=== PATIENT | male | born 1965 | race Caucasian/White ===

== ENCOUNTER 2017-08-31 08:31 | Emergency (ER) | payer OTHER ==
[~2017-08-31] VITALS: Ht 175.3 cm; Wt 94.6 kg
[2017-08-31 08:51] VITALS: BP 123/76
--- NOTE | 2017-08-31 09:09 | NUR ---
PT TO BED 11
--- NOTE | 2017-08-31 09:28 | NUR ---
PATIENT PRESENTS TO ED WITH C/O PRODUCTIVE COUGH X 1 MONTH WHITE PHLEGM AND INTERMITENT DIZZY; PER PT BS 540 AFTER TAKING COUGH SYRUP; TOOK METFORMIN BEFORE ADMIT; DENIES N/V/D;HX OF DM AND HTN;RX OF METFORMIN; SKIN IS PINK/WARM/DRY; AAOX4 WITH EVEN AND STEADY GAIT; HR EVEN AND REGULAR; PATIENT STATES PAIN OF 0/10 AT THIS TIME; PATIENT POSITIONED FOR COMFORT; HOB ELEVATED; BEDRAILS UP X2; BED DOWN. ALL MONITORS IN PLACED;ER MD MADE AWARE OF PT STATUS.
--- NOTE | 2017-08-31 10:08 | NUR ---
DR CHÁVEZ AT BEDSIDE.
[2017-08-31] MEDS: IBUPROFEN 600 MG TAB PO ONE (10:49)
--- NOTE | 2017-08-31 11:00 | NUR ---
XRAY AT BEDSIDE.
[2017-08-31 11:20] VITALS: BP 103/63
--- NOTE | 2017-08-31 11:20 | NUR ---
Patient discharged with v/s stable. Written and verbal after care instructions given and explained. Patient alert, oriented and verbalized understanding of instructions. Ambulatory with steady gait. All questions addressed prior to discharge. ID band removed. Patient advised to follow up with PMD. Rx of ZITHROMAX Z-CATRINA,IBUPROFEN AND ROBITUSSIN given. Patient educated on indication of medication including possible reaction and side effects. Opportunity to ask questions provided and answered.
== END 2017-08-31 11:20 | disposition home or self-care (01) ==
LOC: MED 08:31
DX: J20.9 Acute bronchitis, unspecified (principal); R51 Headache; R50.9 Fever, unspecified; E11.9 Type 2 diabetes mellitus without complications; I10 Essential (primary) hypertension; Z88.2 Allergy status to sulfonamides
CPT/HCPCS: 71010; 82948; 99283; Q0092

== ENCOUNTER 2018-10-01 21:55 | Emergency (ER) | payer OTHER ==
[~2018-10-01] VITALS: Ht 175.3 cm; Wt 97.5 kg
[2018-10-01 22:05] VITALS: BP 133/72
--- NOTE | 2018-10-01 22:12 | NUR ---
PT AMBULATED TO OBBY WITH VSS.
--- NOTE | 2018-10-01 22:35 | NUR ---
52/M BIB SELF, C/O BILATERAL EYE REDNESS, ITCHINESS, DISCOMFORT, DRYNESS, AND SWELLING. PATIENT STATES HE WOKE UP WITH EYE SHUT WITH A FILM OF DRIED DRAINAGE. PATIENT DENIES ANY PAIN AT THIS TIME, STATES HE FELT DISCOMFORT IN THE MORNING. PATIENT STATE, " I DONT FEEL GOOD OVERALL." PERRLA, DENIES BLURRY VISION, WEAKNESS, DIZZINESS, OR SOB. PATIENT A0X4, CLEAR SPEECH, STEADY GAIT.
--- NOTE | 2018-10-01 22:35 | NUR ---
TO ER BED 3
[2018-10-01] MEDS ORDERED: TETRACAINE HCL/PF 0.5% OPTH 4 ML BTL OP ONE (23:55)
[2018-10-02 00:14] VITALS: BP 128/77
--- NOTE | 2018-10-02 00:14 | NUR ---
DPatient discharged with v/s stable. Written and verbal after care instructions given and explained. Patient alert, oriented and verbalized understanding of instructions. Ambulatory with steady gait. All questions addressed prior to discharge. ID band removed. Patient advised to follow up with PMD. Rx of NAPROSYN, DIPHENHYDRAMINE, AND TOBRAMYCIN given. Patient educated on indication of medication including possible reaction and side effects. Opportunity to ask questions provided and answered.
== END 2018-10-02 00:14 | disposition home or self-care (01) ==
LOC: MED 21:55
DX: H10.9 Unspecified conjunctivitis (principal); E11.9 Type 2 diabetes mellitus without complications; I10 Essential (primary) hypertension; Z98.890 Other specified postprocedural states; Z88.2 Allergy status to sulfonamides
CPT/HCPCS: 81025; 99283

== ENCOUNTER 2019-08-21 10:38 | Day surgery (SDC) | payer OTHER ==
[~2019-08-21] VITALS: Ht 175.3 cm; Wt 95.3 kg
[2019-08-21] MEDS ORDERED: fentaNYL 0.05 MG/ML VIAL ONE (11:36)
[2019-08-21] MEDS: fentaNYL 0.05 MG/ML VIAL IVP ONE (11:56)
[2019-08-21] MEDS: LIDOCAINE 2% 100 MG/5 ML UJET TP ONE (12:00)
== END 2019-08-21 12:47 | disposition home or self-care (01) ==
LOC: MMU 10:38 → MDS 10:38
PROVIDERS: ATTEND Internal Medicine Gastroenterology
DX: Z12.11 Encounter for screening for malignant neoplasm of colon (principal); K21.9 Gastro-esophageal reflux disease without esophagitis; I10 Essential (primary) hypertension; E11.9 Type 2 diabetes mellitus without complications; F17.210 Nicotine dependence, cigarettes, uncomplicated; Z79.82 Long term (current) use of aspirin; Z79.899 Other long term (current) drug therapy; E66.9 Obesity, unspecified; Z68.31 Body mass index [BMI] 31.0-31.9, adult; Z98.890 Other specified postprocedural states; Z88.2 Allergy status to sulfonamides
CPT/HCPCS: J3010

== ENCOUNTER 2020-01-08 13:26 | Emergency (ER) | payer OTHER ==
[~2020-01-08] VITALS: Ht 175.3 cm; Wt 95.3 kg
[2020-01-08 13:29] VITALS: BP 134/107
[2020-01-08] MEDS ORDERED: KETOROLAC 60 MG/2 ML VIAL IM ONE (13:45)
[2020-01-08 14:56] VITALS: BP 150/87
== END 2020-01-08 14:56 | disposition home or self-care (01) ==
LOC: MED 13:26
DX: M77.12 Lateral epicondylitis, left elbow (principal); E11.9 Type 2 diabetes mellitus without complications; I10 Essential (primary) hypertension; Z88.2 Allergy status to sulfonamides
CPT/HCPCS: 73080; 96372; 99283; J1885; Q0092

== ENCOUNTER 2020-09-04 00:54 | Emergency (ER) | payer OTHER, SELFPAY ==
[~2020-09-04] VITALS: Ht 175.3 cm; Wt 95.3 kg
[2020-09-04 01:00] VITALS: BP 149/80
--- NOTE | 2020-09-04 01:00 | NUR ---
TO TENT # 01 AMBULATORY
--- NOTE | 2020-09-04 01:06 | NUR ---
SEEN AND EXAMINED BY HARMONY WITH ORDERS AND CARRIED OUT.
[2020-09-04 01:30] VITALS: BP 149/80
--- NOTE | 2020-09-04 01:36 | NUR ---
EKG PERFORMED IN TRIAGE TENT. EKG READS SINUS TACHYCARDIA @ 100
[2020-09-04 01:39] LABS: BASOPHILS % (AUTO) 0.3 % (0.0-2.0); EOSINOPHILS % (AUTO) 0.1 % (0.0-4.0); HEMOGLOBIN 15.3 g/dL (12.0-18.0); LYMPHOCYTES # (AUTO) 0.6 K/uL (2.0-11.5); LYMPHOCYTES % (AUTO) 17.1 % (20.5-51.1); MEAN CORPUSCULAR HEMOGLOBIN 29 pg (27-31); MEAN CORPUSCULAR HGB CONC 34 g/dL (33-37); MEAN CORPUSCULAR VOLUME 84.4 fL (80-94); MONOCYTES # (AUTO) 0.1 K/uL (0.8-1.0); MONOCYTES % (AUTO) 4.4 % (1.7-9.3); NEUTROPHILS # (AUTO) 2.6 K/uL (1.8-7.7); NEUTROPHILS % (AUTO) 78.1 % (42.2-75.2); PLATELET COUNT (AUTO) 119 K/uL (140-450); RED BLOOD CELL COUNT(AUTO) 5.33 MIL/uL (4.20-6.10); RED CELL DISTRIBUTION WIDTH 13.2 % (11.6-13.7); WHITE BLOOD COUNT (AUTO) 3.4 K/uL (4.8-10.8)
[2020-09-04 02:14] LABS: LACTATE DEHYDROGENASE 427 U/L (85-227)
[2020-09-04 02:17] LABS: ANION GAP 16.1 (8-16); CARBON DIOXIDE 27.8 mmol/L (21-32); POTASSIUM 3.9 mmol/L (3.5-5.1)
[2020-09-04 02:25] LABS: PROTHROMBIN TIME 9.4 secs (10.8-13.4)
[2020-09-04 02:28] LABS: ALBUMIN 3.3 g/dL (3.4-5.0); TOTAL BILIRUBIN 0.4 mg/dL (0.0-1.0)
--- NOTE | 2020-09-04 03:05 | NUR ---
ALL SWABS DONE AND SENT LAB, AJAY, NOVEL , RSV, INFLUENZA
[2020-09-04 03:22] LABS: APPEARANCE,URINE CLEAR (CLEAR); BILIRUBIN,URINE NEGATIVE (NEGATIVE); BLOOD, URINE NEGATIVE (NEGATIVE); COLOR,URINE YELLOW (YELLOW); LEUKOCYTE ESTERASE ,URINE NEGATIVE (NEGATIVE); NITRITE, URINE NEGATIVE (NEGATIVE); UGLUCOSE 2+ (NEGATIVE)
--- NOTE | 2020-09-04 03:30 | NUR ---
PATIENT ELOPED FROM FACILITY. DISCHARGE INSTRUCTIONS NOT GIVEN TO PATIENT. DR. Sandoval NOTIFIED.
[2020-09-04 14:44] LABS: RSV NEGATIVE (NEGATIVE)
[2020-09-04] MEDS ORDERED: LOSA25TA43 PO (15:09)
[2020-09-04] MEDS ORDERED: ALOG1TAB7 PO (15:09)
[2020-09-04] MEDS ORDERED: METF-336 PO (15:09)
== END 2020-09-04 03:30 | disposition left against medical advice (07) ==
LOC: MED 00:54
DX: U07.1 COVID-19 (principal); J12.89 Other viral pneumonia; R09.02 Hypoxemia; E11.9 Type 2 diabetes mellitus without complications; I10 Essential (primary) hypertension; Z79.84 Long term (current) use of oral hypoglycemic drugs; Z79.899 Other long term (current) drug therapy; Z88.2 Allergy status to sulfonamides
CPT/HCPCS: 36415; 71045; 80053; 81003; 82550; 82728; 83605; 83615; 83880; 84484; 85025; 85379; 85384; 85610; 85730; 86140; 87040; 87086; 87420; 87426; 87804; 93005; 99285; U0003

== ENCOUNTER 2020-09-04 09:00 | Inpatient (IN) | payer OTHER, SELFPAY ==
[~2020-09-04] VITALS: Ht 175.3 cm; Wt 94.3 kg
[2020-09-04 09:10] VITALS: BP 155/73
--- NOTE | 2020-09-04 10:15 | NUR ---
PT MOVED TO [facility] TENT BY EMS. PT PLACED ON N/C 6L VIA N/C
--- NOTE | 2020-09-04 10:29 | NUR ---
PT SEEN BY DR. HOLDEN OUTSIDE IN [facility].
--- NOTE | 2020-09-04 10:37 | NUR ---
PATIENT AMBULATED FROM TENT-[address] HOLDEN.
--- NOTE | 2020-09-04 11:00 | NUR ---
54 YEAR OLD MALE COMPLAINS OF SHORTNESS OF BREATHE X 1 WEEK. PT DENIES CP, N/V/D, OR HEADACHE. PT AOX4, BREATHING EVEN AND LABORED, RR 30, PLACED ON 6L NC SPO2 95%, SKIN WARM AND DRY. BED IN LOWEST POSITION, LOCKED, BED RAIL UPX1. PMH - DM2, HTN ALLERGIES - SULFAS
--- NOTE | 2020-09-04 11:35 | NUR ---
COVID AND INFLUENZA SWABS SENT TO LAB
[2020-09-04] MEDS ORDERED: AZITHROMYCIN 500 MG in DEXTROSE 5% 250 ML IV ONE (11:45)
[2020-09-04] MEDS ORDERED: DEXAMETHASONE 10 MG/ML VIAL IVP ONE (11:45)
[2020-09-04 11:48] LABS: BASOPHILS % (AUTO) 0.3 % (0.0-2.0); HEMOGLOBIN 14.5 g/dL (12.0-18.0); LYMPHOCYTES # (AUTO) 0.5 K/uL (2.0-11.5); LYMPHOCYTES % (AUTO) 15.7 % (20.5-51.1); MEAN CORPUSCULAR HEMOGLOBIN 29 pg (27-31); MEAN CORPUSCULAR HGB CONC 35 g/dL (33-37); MEAN CORPUSCULAR VOLUME 83.5 fL (80-94); MONOCYTES # (AUTO) 0.2 K/uL (0.8-1.0); MONOCYTES % (AUTO) 6.9 % (1.7-9.3); NEUTROPHILS # (AUTO) 2.3 K/uL (1.8-7.7); NEUTROPHILS % (AUTO) 77.1 % (42.2-75.2); PLATELET COUNT (AUTO) 114 K/uL (140-450); RED BLOOD CELL COUNT(AUTO) 5.03 MIL/uL (4.20-6.10); RED CELL DISTRIBUTION WIDTH 13.1 % (11.6-13.7)
[2020-09-04] MEDS ORDERED: cefTRIAXone 1,000 MG VIAL ONE (11:51)
[2020-09-04 11:54] LABS: APPEARANCE,URINE CLEAR (CLEAR); BILIRUBIN,URINE NEGATIVE (NEGATIVE); BLOOD, URINE 1+ (NEGATIVE); COLOR,URINE YELLOW (YELLOW); LEUKOCYTE ESTERASE ,URINE NEGATIVE (NEGATIVE); NITRITE, URINE NEGATIVE (NEGATIVE); UGLUCOSE 2+ (NEGATIVE)
[2020-09-04 12:12] LABS: LACTATE DEHYDROGENASE 430 U/L (85-227)
[2020-09-04 12:16] LABS: ALBUMIN 3.1 g/dL (3.4-5.0); ANION GAP 14.8 (8-16); CARBON DIOXIDE 25.1 mmol/L (21-32); CREATININE 0.8 mg/dL (0.6-1.3); POTASSIUM 3.9 mmol/L (3.5-5.1); TOTAL BILIRUBIN 0.4 mg/dL (0.0-1.0)
[2020-09-04] MEDS ORDERED: AZITHROMYCIN 500 MG INJ VIAL IV ONE (12:17)
[2020-09-04 12:19] LABS: PROTHROMBIN TIME 9.8 secs (10.8-13.4)
[2020-09-04 13:32] LABS: WBC,URINE 0-5 /HPF (0-5)
[2020-09-04] MEDS ORDERED: KCL 20 MEQ/WATER INJ PREMIX 200 ML IV PRN (13:40)
[2020-09-04] MEDS ORDERED: MORPHINE SULFATE 4 MG/ML SYR IVP PRN (13:40)
[2020-09-04] MEDS ORDERED: POTASSIUM CHLORIDE 10 MEQ TABER PO PRN (13:40)
[2020-09-04] MEDS ORDERED: DEXTROSE 50% 50 ML SYR IVP PRN (13:45)
[2020-09-04 14:05] LABS: C-REACTIVE PROTEIN QUANT 9.5 mg/dL (0.0-0.9)
[2020-09-04] MEDS ORDERED: METF-336 PO (15:09)
[2020-09-04] MEDS ORDERED: ALOG1TAB7 PO (15:09)
[2020-09-04] MEDS ORDERED: LOSA25TA43 PO (15:09)
[2020-09-04] MEDS: NACL 0.9% 1,000 ML IV SCH (15:12)
--- NOTE | 2020-09-04 15:24 | NUR ---
PT ALERT AND AWAKE, BREATHING EVEN AND UNLABORED. RR 30, SPO2 93% ON 6L NC. PT STATES HE IS BREATHING MUCH EASIER NOW
[2020-09-04] MEDS: BLOOD GLUCOSE MONITORING 1 DEV DEV FS SCH ×2 (18:30→21:23)
--- NOTE | 2020-09-04 19:15 | NUR ---
REPORT GIVEN TO MERCEDES PARKS, TRANSFER OF CARE AT THIS TIME
--- NOTE | 2020-09-04 19:44 | NUR ---
Report received from CHARLY Caal for continuation of care.
--- NOTE | 2020-09-04 19:50 | NUR ---
pt refusing insulin - per pt he usually takes metformin 1000 mg daily. Will contact montessori preschool teacher Doctor for medication orders at this time.
--- NOTE | 2020-09-04 20:00 | NUR ---
PT SAO2 DECREASED TO 87% ON 6L NC - PT PLACED ON 10L NRB - SAO2 95%.
--- NOTE | 2020-09-04 20:06 | NUR ---
per Dr. Ornelas patient cannot have metformin because at this time it will increase his risk for kidney injury. Pt made aware of Doctor's orders.
[2020-09-04] MEDS: APIXABAN 2.5 MG TAB PO SCH (21:23)
--- NOTE | 2020-09-04 21:24 | NUR ---
PT FBS 265 , PT REFUSES INSULIN COVERAGE.
--- NOTE | 2020-09-04 21:54 | NUR ---
Note [email or web address] in EDM - 09/04/[address] QUINTANILLA MADE AWARE OF SUCTIONING OF 60 CC OF DARK LIQUID FROM OG TUBE. PER DR. SOCORRO LAINEZ THAT HEPARIN DRIP HAS BEEN STOPPED . START PT ON SANTOSTATIN DRIP AND CONTINUE TO MONITOR PT.
--- NOTE | 2020-09-04 23:22 | NUR ---
PER PT AUTHORIZATION SPOKE W/ DAUGHTER LOY , UPDATED HER ON PT STATUS.
--- NOTE | 2020-09-05 00:59 | NUR ---
PT RESTING IN BED W/ EYES CLOSED, RR EVEN AND UNLABORED. VSS. BED LOCKED AND IN LOWEST POSITION, HOB ELEVATED. PT ON 10L NRB. NO ACUTE DISTRESS NOTED.
--- NOTE | 2020-09-05 01:47 | NUR ---
PAGED POLITICAL DIRECTOR DOCTOR REGARDING PT COUGH & BLOODY SPUTUM
--- NOTE | 2020-09-05 01:51 | NUR ---
PER DR. DONALD ADMINISTER GUAIFENSIN 200MG PO PRN Q4HR NEEDED FOR COUGH.
[2020-09-05] MEDS: NACL 0.9% 1,000 ML IV SCH ×2 (02:20→21:23)
[2020-09-05] MEDS: guaiFENesin 20 MG/ML UDC PO PRN ×5 (02:21→20:13)
--- NOTE | 2020-09-05 03:55 | NUR ---
EMPTIED 1300 CC OF YELLOW URINE FROM URINAL.
--- NOTE | 2020-09-05 04:52 | NUR ---
PT'S MASK FALLING OFF WHILE SLEEPING, SAO2 80%. MASK PLACED BACK ON PT AND TIGHTENED, OXYGEN LEVEL INCREASED TO 15L NRB. CURRENT SAO2 90%.
--- NOTE | 2020-09-05 07:01 | NUR ---
PT FBS 277 , PT REFUSES INSULIN COVERAGE AT THIS TIME.
[2020-09-05] MEDS: BLOOD GLUCOSE MONITORING 1 DEV DEV FS SCH ×4 (07:07→20:15)
--- NOTE | 2020-09-05 07:25 | NUR ---
REPORT GIVEN TO CHARLY READ FOR TRANSFER OF CARE.
--- NOTE | 2020-09-05 07:26 | NUR ---
Report received from CHARLY Benson. Transfer of care at this time.
--- NOTE | 2020-09-05 07:45 | NUR ---
Pt resting, HOB elevated. Emptied 600mL urine, provided new urinal at bedside. VSS, will continue to monitor.
[2020-09-05 08:03] LABS: BASOPHILS % (AUTO) 0.2 % (0.0-2.0); HEMOGLOBIN 15.2 g/dL (12.0-18.0); LYMPHOCYTES # (AUTO) 0.6 K/uL (2.0-11.5); MEAN CORPUSCULAR HEMOGLOBIN 29 pg (27-31); MEAN CORPUSCULAR HGB CONC 35 g/dL (33-37); MEAN CORPUSCULAR VOLUME 84.4 fL (80-94); MONOCYTES # (AUTO) 0.3 K/uL (0.8-1.0); MONOCYTES % (AUTO) 7.5 % (1.7-9.3); NEUTROPHILS # (AUTO) 2.6 K/uL (1.8-7.7); NEUTROPHILS % (AUTO) 75.3 % (42.2-75.2); PLATELET COUNT (AUTO) 146 K/uL (140-450); RED BLOOD CELL COUNT(AUTO) 5.21 MIL/uL (4.20-6.10); RED CELL DISTRIBUTION WIDTH 13.2 % (11.6-13.7); WHITE BLOOD COUNT (AUTO) 3.4 K/uL (4.8-10.8)
--- NOTE | 2020-09-05 08:05 | NUR ---
Report given to CHARLY Oleary for pending admission 117.
--- NOTE | 2020-09-05 08:26 | NUR ---
Patient will be admitted to care of Zak Zheng MD. Admited to tele. Will go to room 117. Belongings list completed. Report to CHARLY Nava.
[2020-09-05] MEDS: AZITHROMYCIN 500 MG in DEXTROSE 5% 250 ML IV SCH (09:00)
--- NOTE | 2020-09-05 09:18 | NUR ---
PATIENT HAS BEEN SCREENED AND CATEGORIZED MODERATE NUTRITION RISK. PATIENT WILL BE SEEN WITHIN 3-5 DAYS OF ADMISSION. 09/07/20 09/09/[address]
[2020-09-05] MEDS: INSULIN LISPRO SLIDING SCALE 100 UNITS/ML VIAL SUBQ PRN ×4 (09:42→20:07)
[2020-09-05] MEDS: DEXAMETHASONE 4 MG/ML VIAL IVP SCH (11:36)
[2020-09-05] MEDS: APIXABAN 2.5 MG TAB PO SCH ×2 (11:37→20:10)
--- NOTE | 2020-09-05 12:29 | NUR ---
SOCIAL WORK NOTE: Patient's Orientation Unable To Assess Information Provided By SEBAS BUENO - MOTHER Comments SW WAS UNABLE TO MEET PATIENT AT BEDSIDE DUE TO MEDICAL CONDITION. SW COMPLETED ASSESSMENT WITH PATIENT'S MOTHER.` Hourly Sign Language Interpreter, Realtionship and Phone Number SEBAS BUENO MOTHER [phone] [facility] Power of Scrub Technician No Does Patient Have a POLST No Identifying Problems No Social Work Triggers Is A Social Work Consult Needed No Mandate Report Filed No Explanation Of Identifying Problems PATIENT IS A 54-YEAR-OLD MALE ADMITTED FOR ACUTE HUPOXIC RESPIRATORY FAILURE. PATIENT HAS PMHX OF HYPERTENSION AND DIABETES. Admitted From Home Pre-Admission Level Of Functioning Status Independent/Ambulatory Prior Resources/Services Used In Last 12 Months No Prior Resources Used Prior DME No Prior DME Used Living Situation Lives With Family House Patient Had Caregiver No Home Support No Caregiver Issues Financial Issues No Known Financial Issue Referral To The Financial Counselor Needed No Factors/Needs No D/C Needs Identified Pt/Rep Participated In Discharge Plan Yes Patient/Family Agress With Discharge Plan Yes Discharge Plan Comments TENTATIVE DISCHARGE PLAN IS FOR PATIENT TO RETURN HOME. DC Plan Status Initiated Addendum: 09/22/20 at 1120 by Keshawn GORMAN SW CONTACTED PATIENT'S MOTHER SEBAS BUENO TO FOLLOW UP WITH FAMILY AND OFFER SUPPORT AND RESOURCES. CHASE SPOKE WITH SEBAS WHO STATED THAT SHE IS UNABLE TO THINK OF ANY RESOURCES OR ASSISTANCE THAT SHE CAN THINK OF. CHASE PROVIDED DIRECT LINE TO [employer] AND WILL REMAIN AVAILABLE IF ANY SOCIAL SUPPORT IS NEEDED.
[2020-09-05] MEDS ORDERED: remdesivir COMMUNICATION ORDER 1 EA MISC MC PRN (15:20)
[2020-09-05 17:34] LABS: ALBUMIN 2.8 g/dL (3.4-5.0); ANION GAP 13.6 (8-16); CARBON DIOXIDE 26.7 mmol/L (21-32); CREATININE 0.8 mg/dL (0.6-1.3); MAGNESIUM 2.1 mg/dL (1.8-2.4); POTASSIUM 4.3 mmol/L (3.5-5.1); TOTAL BILIRUBIN 0.4 mg/dL (0.0-1.0)
[2020-09-05] MEDS ORDERED: remdesivir CLINICAL MONITORING 1 EA MISC MC PRN (17:45)
[2020-09-05] MEDS ORDERED: REMDESIVIR (EUA) 200 MG in NACL 0.9% 100 ML IV SCH (18:00)
[2020-09-05] MEDS: ACETAMINOPHEN 325 MG TAB PO PRN (18:50)
--- NOTE | 2020-09-05 19:25 | NUR ---
RECEIVED REPORT FROM DAY CHARLY GARRIDO. PT AOX4 ON 15L NRB. NO S/S RESPIRATORY DISTRESS. NO C/O PAIN AT THIS TIME. IV SITE LAC 20G PATENT AND INTACT, INFUSING IVF ORDERED. SAFETY MEASURES IN PLACE. CALL LIGHT WITHIN REACH. WILL CONTINUE TO MONITOR
[2020-09-05 20:00] VITALS: BP 126/68
[2020-09-05] MEDS: TEMAZEPAM 15 MG CAP PO SCH (20:08)
--- NOTE | 2020-09-05 20:10 | NUR ---
GAVE 6 UNITS INSULIN SUBQ FOR PT BLOOD SUGAR 291. TOLERATED WELL. WILL CONTINUE TO MONITOR
--- NOTE | 2020-09-05 20:15 | NUR ---
ADMINISTERED SCHEDULED MEDS. PT TOLERATED WELL. WILL CONTINUE TO MONITOR
--- NOTE | 2020-09-05 22:40 | NUR ---
PT ASLEEP IN BED. NRB IN PLACE. VISIBLE CHEST RISE AND FALL NOTED. NO S/S OF DISTRESS NOTED. SAFETY MEASURES IN PLACE. WILL CONTINUE TO MONITOR.
[2020-09-06] VITALS: BP 134/67
--- NOTE | 2020-09-06 01:45 | NUR ---
PT ASLEEP IN BED. NRB MASK IN PLACE. VISIBLE CHEST RISE AND FALL NOTED. NO S/S OF DISTRESS NOTED. WILL CONTINUE TO MONITOR.
[2020-09-06] MEDS: NACL 0.9% 1,000 ML IV SCH ×2 (03:10→15:57)
[2020-09-06 04:00] VITALS: BP 127/68
[2020-09-06] MEDS: BLOOD GLUCOSE MONITORING 1 DEV DEV FS SCH ×4 (05:19→20:57)
[2020-09-06] MEDS: HYDROcodone/APAP 5/325 MG 1 TAB TAB PO PRN ×3 (05:24→18:08)
[2020-09-06] MEDS: INSULIN LISPRO SLIDING SCALE 100 UNITS/ML VIAL SUBQ PRN ×4 (05:27→20:58)
--- NOTE | 2020-09-06 05:30 | NUR ---
GAVE 6 UNITS INSULIN SUBQ FOR PT BLOOD SUGAR 252, TOLERATED WELL. WILL CONTINUE TO MONITOR
[2020-09-06] MEDS: ONDANSETRON 4 MG/2 ML VIAL IVP PRN ×3 (05:48→21:04)
--- NOTE | 2020-09-06 07:35 | NUR ---
ENDORSED PT TO DAY RN FOR CONTINUITY OF CARE. PT IS IN STABLE CONDITION.
--- NOTE | 2020-09-06 07:36 | NUR ---
RECEIVED BEDSIDE REPORT FROM OSCILLOGRAPH TECHNICIAN NURSE. PT AOX4 ON 15L NRB. RESPIRATIONS EVEN AND UNLABORED. NO S/S RESPIRATORY DISTRESS. SKIN IS INTACT, WARM, AND DRY. IV SITE LAC 20G PATENT AND INTACT. SAFETY MEASURES IN PLACE. BED IN LOW POSITION AND CALL LIGHT WITHIN REACH. WILL CONTINUE TO MONITOR
[2020-09-06 08:00] VITALS: BP 119/66
[2020-09-06 08:04] LABS: ALBUMIN 2.6 g/dL (3.4-5.0); ANION GAP 13.5 (8-16); CARBON DIOXIDE 26.6 mmol/L (21-32); CREATININE 0.7 mg/dL (0.6-1.3); MAGNESIUM 2.1 mg/dL (1.8-2.4); POTASSIUM 4.1 mmol/L (3.5-5.1); TOTAL BILIRUBIN 0.4 mg/dL (0.0-1.0)
[2020-09-06 08:13] LABS: HEMATOCRIT 43.9 % (36-52); HEMOGLOBIN 14.9 g/dL (12.0-18.0); LYMPHOCYTES # (AUTO) 0.5 K/uL (2.0-11.5); LYMPHOCYTES % (AUTO) 8.5 % (20.5-51.1); MEAN CORPUSCULAR HEMOGLOBIN 29 pg (27-31); MEAN CORPUSCULAR HGB CONC 34 g/dL (33-37); MEAN CORPUSCULAR VOLUME 84.6 fL (80-94); MONOCYTES # (AUTO) 0.3 K/uL (0.8-1.0); MONOCYTES % (AUTO) 6.4 % (1.7-9.3); NEUTROPHILS # (AUTO) 4.6 K/uL (1.8-7.7); NEUTROPHILS % (AUTO) 85.1 % (42.2-75.2); PLATELET COUNT (AUTO) 183 K/uL (140-450); RED BLOOD CELL COUNT(AUTO) 5.19 MIL/uL (4.20-6.10); RED CELL DISTRIBUTION WIDTH 12.9 % (11.6-13.7); WHITE BLOOD COUNT (AUTO) 5.4 K/uL (4.8-10.8)
[2020-09-06] MEDS: DEXAMETHASONE 4 MG/ML VIAL IVP SCH (09:40)
[2020-09-06] MEDS: APIXABAN 2.5 MG TAB PO SCH ×2 (09:41→20:57)
--- NOTE | 2020-09-06 10:15 | NUR ---
PATIENT 02 SAT WAS AROUND THE 80%. EDUCATED ON DEEP BREATHING TO HELP INCREASE O2 SATURATION. PATIENT VERBALIZED UNDERSTANDING. WILL CONTINUE TO MONITOR.
[2020-09-06] MEDS: guaiFENesin 20 MG/ML UDC PO PRN (10:21)
[2020-09-06] MEDS: AZITHROMYCIN 500 MG in DEXTROSE 5% 250 ML IV SCH (10:26)
--- NOTE | 2020-09-06 10:27 | NUR ---
ALL SCHEDULED MEDS GIVEN. PT IS STABLE. NO DISTRESS NOTED. WILL CONTINUE TO MONITOR.
--- NOTE | 2020-09-06 11:15 | NUR ---
PT EVALUATION IS BEING DONE TO PT NOW
[2020-09-06 12:00] VITALS: BP 119/66
[2020-09-06 14:13] LABS: ANION GAP 13.9 (8-16); CARBON DIOXIDE 29.3 mmol/L (21-32); CREATININE 0.9 mg/dL (0.6-1.3); POTASSIUM 4.2 mmol/L (3.5-5.1)
--- NOTE | 2020-09-06 15:20 | NUR ---
PT IS SLEEPING NOW, NO SIGN OF DISTRESS NOTED, VISIBLE CHEST RISE NOTED
[2020-09-06 16:00] VITALS: BP 120/75
[2020-09-06] MEDS: REMDESIVIR (EUA) 100 MG in NACL 0.9% 100 ML IV SCH (17:06)
--- NOTE | 2020-09-06 18:11 | NUR ---
PATIENT COMPLAINED OF HEADACHE 11/16. ADMINISTERED 1 TYLENOL PO PER ORDERED. Addendum: 09/06/20 at 1814 by Von Rowe RN RN 2 TYLENOL PILLS
[2020-09-06] MEDS: ACETAMINOPHEN 325 MG TAB PO PRN (18:13)
--- NOTE | 2020-09-06 19:20 | NUR ---
RECEIVED BEDSIDE REPORT FROM DAY SHIFT NURSE FOR CONTINUITY OF CARE. PT IS AWAKE AND ALERT, A&OX4. ON 15L O2 NRB WITH BREATHING UNLABORED. CHEST RISE AND FALL IS SYMMETRICAL. SR ON TELE MONITORING. PT IS AMBULATORY. SKIN IS WARM, DRY, AND INTACT. IV IS IN THE LEFT AC 20 GAUGE. PLAN OF CARE DISCUSSED. DROPLET PRECAUTIONS IN PLACE. WILL CONTINUE TO MONITOR. PT IS STABLE.
--- NOTE | 2020-09-06 19:43 | NUR ---
ENDORSED TO BEEF SKINNER FOR CONTINUITY OF CARE. PT IS STABLE.
[2020-09-06 20:00] VITALS: BP 141/72
[2020-09-06] MEDS: TEMAZEPAM 15 MG CAP PO SCH (20:57)
--- NOTE | 2020-09-06 21:04 | NUR ---
ZOFRAN WAS GIVEN PRN FOR NAUSEA. WILL CONTINUE TO MONITOR FOR UPSET STOMACH.
--- NOTE | 2020-09-06 21:40 | NUR ---
CALLED RT TO BEDSIDE FOR PT'S O2 SAT IN THE 70'S. RT IS ASSESSING THE PT. PT WAS PRONED AND EXPLAINED IMPORTANCE OF PRONING. PT IS AGITATED AND WANTS TO SLEEP BUT STATES THAT HE CAN'T BECAUSE THE MASK IS TOO LOUD. PT'S O2 SAT IS NOW 95% WHILE PRONED.
--- NOTE | 2020-09-06 21:49 | NUR ---
CALLED TO BEDSIDE PT DESAT TO 70s PT COMPLIED W/ SELF PRONING AND WAS RE-ASSURED HE SEEMED A BIT ANXIOUS PT ALSO STATED HE HAS BEEN ANXIOUS PT CURRENT SPO2 85-87% UPON MY DEPARTURE
--- NOTE | 2020-09-06 22:10 | NUR ---
PT IS NONCOMPLIANT. PT CONTINUES TO TAKE OFF MASK AND TURNS ON TO HIS BACK EVEN AFTER EXPLAINED THE IMPORTANCE OF PRONING. PT WAS GIVEN EDUCATION ABOUT THE IMPORTANCE OF OXYGEN AND KEEPING THE MASK ON. PT VERBALIZES UNDERSTANDING BUT IS AGITATED.
[2020-09-07] VITALS: BP 115/70
--- NOTE | 2020-09-07 | NUR ---
PT ATTEMPTED TO USE THE RESTROOM FOR A BM. PT WAS SOB AND HAD ANXIETY. PT PULLED OUT IV AND PULLED OFF TELE BOX. PT GOT HIS GOWN WET AND HE WAS CHANGED. PT DID NOT HAVE MASK ON AND WAS INSTRUCTED ABOUT IMPORTANCE OF KEEPING MASK ON FOR OXYGEN.
--- NOTE | 2020-09-07 02:16 | NUR ---
PT IS ASLEEP IN SEMI FOWLERS POSITION. NO RESPIRATORY DISTRESS NOTED. BREATHING IS UNLABORED. ON 15L O2 NRB WITH O2 SAT AT 90%. PT IS STABLE.
[2020-09-07 04:00] VITALS: BP 142/83
--- NOTE | 2020-09-07 04:00 | NUR ---
PT IS SLEEPING IN SEMI FOWLERS POSITION. NO RESPIRATORY DISTRESS NOTED. PT IS ON 15L O2 NRB. TOLERATING THE MASK WELL NOW. O2 SAT IS 92%. PT IS STABLE.
[2020-09-07] MEDS: NACL 0.9% 1,000 ML IV SCH ×2 (04:10→13:03)
--- NOTE | 2020-09-07 06:00 | NUR ---
NEW IV LINE WAS PLACED IN THE LEFT AC 20 GAUGE. THE NEW IV WAS PLACED IN ONE ATTEMPT. PT TOLERATED IT WELL. IV IS PATENT AND FLUSHING.
[2020-09-07] MEDS: INSULIN LISPRO SLIDING SCALE 100 UNITS/ML VIAL SUBQ PRN ×4 (06:19→20:46)
[2020-09-07] MEDS: BLOOD GLUCOSE MONITORING 1 DEV DEV FS SCH ×4 (06:19→20:41)
[2020-09-07] MEDS: HYDROcodone/APAP 5/325 MG 1 TAB TAB PO PRN (06:41)
--- NOTE | 2020-09-07 06:41 | NUR ---
PT IS COMPLAINING OF HEADACHE AT A SCALE OF 6/10. PT WAS GIVEN NORCO FOR PAIN. WILL MONITOR PAIN.
--- NOTE | 2020-09-07 07:20 | NUR ---
ENDORSED PT TO DAY SHIFT NURSE FOR CONTINUITY OF CARE. PT IS STABLE AT THIS TIME. NO RESPIRATORY DISTRESS OR SOB. PLAN OF CARE DISCUSSED.
[2020-09-07 07:43] LABS: BASOPHILS % (AUTO) 0.1 % (0.0-2.0); HEMATOCRIT 47.6 % (36-52); HEMOGLOBIN 16.2 g/dL (12.0-18.0); LYMPHOCYTES # (AUTO) 0.5 K/uL (2.0-11.5); LYMPHOCYTES % (AUTO) 7.2 % (20.5-51.1); MEAN CORPUSCULAR HEMOGLOBIN 29 pg (27-31); MEAN CORPUSCULAR HGB CONC 34 g/dL (33-37); MEAN CORPUSCULAR VOLUME 84.7 fL (80-94); MONOCYTES # (AUTO) 0.6 K/uL (0.8-1.0); MONOCYTES % (AUTO) 8.1 % (1.7-9.3); NEUTROPHILS # (AUTO) 5.9 K/uL (1.8-7.7); NEUTROPHILS % (AUTO) 84.6 % (42.2-75.2); PLATELET COUNT (AUTO) 104 K/uL (140-450); RED BLOOD CELL COUNT(AUTO) 5.62 MIL/uL (4.20-6.10); RED CELL DISTRIBUTION WIDTH 13.3 % (11.6-13.7)
--- NOTE | 2020-09-07 07:45 | NUR ---
RECEIVED BEDSIDE REPORT FROM PELLET POST INSPECTOR NURSE. PT AOX4 ON 15L NRB. RESPIRATIONS EVEN AND UNLABORED. O2 SATURATION AT 98%. NO S/S RESPIRATORY DISTRESS. SKIN IS INTACT, WARM, AND DRY. IV SITE LAC 20G PATENT AND INTACT. SAFETY MEASURES IN PLACE. BED IN LOW POSITION AND CALL LIGHT WITHIN REACH. WILL CONTINUE TO MONITOR
[2020-09-07 08:00] VITALS: BP 138/82
[2020-09-07 08:21] LABS: ALBUMIN 2.8 g/dL (3.4-5.0); CREATININE 0.8 mg/dL (0.6-1.3); TOTAL BILIRUBIN 0.6 mg/dL (0.0-1.0)
[2020-09-07] MEDS: APIXABAN 2.5 MG TAB PO SCH ×3 (09:00→20:33)
[2020-09-07] MEDS: DEXAMETHASONE 4 MG/ML VIAL IVP SCH (09:20)
[2020-09-07] MEDS: DOCUSATE SODIUM 100 MG GELCAP PO SCH (09:21)
[2020-09-07] MEDS: AZITHROMYCIN 500 MG in DEXTROSE 5% 250 ML IV SCH (09:36)
--- NOTE | 2020-09-07 09:40 | NUR ---
ALL SCHEDULED MEDS GIVEN. PT IS STABLE. NO DISTRESS NOTED. WILL CONTINUE TO MONITOR.
[2020-09-07 12:00] VITALS: BP 158/83
--- NOTE | 2020-09-07 12:06 | NUR ---
BLOOD GLUCOSE CHECK IS 250. INSULIN COVERAGE NEEDED. ADMINISTERED 4 UNITS OF INSULIN SQ.
[2020-09-07] MEDS: ACETAMINOPHEN 325 MG TAB PO PRN (13:04)
[2020-09-07] MEDS: guaiFENesin 20 MG/ML UDC PO PRN ×2 (13:04→16:59)
--- NOTE | 2020-09-07 13:06 | NUR ---
PT COMPLAINED OF HEADACHE 3/10. ADMINISTERED TYLENOL PO. PT IS STABLE. NO DISTRESS NOTED. WILL CONTINUE TO MONITOR.
--- NOTE | 2020-09-07 13:25 | NUR ---
PT COMPLAINED OF SPILLING DRINKS ON HIMSELF AND ONTO THE FLOOR. CHANGED PATIENT AND KEPT HIM DRY. PATIENT IS COMFORTABLE AND RELAXED IN BED. NO DISTRESS NOTED. WILL CONTINUE TO MONITOR.
--- NOTE | 2020-09-07 13:46 | NUR ---
DC PLANN[age] YRS OLD MALE PATIENT WAS ADMITTED FROM HOME WITH A DX OF ACUTE HYPOXIC RESP FAILURE /COVID . PT HAS A HX OF HTN AND DM. CXR SHOWED LOWER LUNG VOLUME WITH INCREASED AND PATCHY CONSOLIDATION. RAPID AND PCR COVID TEST POSITIVE. STARTED COVID PROTOCOL REMDESIVER , AZITHROMYCIN AND ROCEPHIN. ON 15L/NRB SATING 90. CONSULTED WITH PULMO AND ID. DC PLAN TO GO HOME WHEN STABLE CM TO FOLLOW Addendum: 09/12/20 at 1222 by Heydi Muñoz CM REMAINS ORALLY INTUBATED TO VENT, FIO2 60%, PEEP 8, O2 SAT 98%. SEDATED WITH PROPOFOL. ON FRANCISCA LEE. PER PULMO/INTELLIGENCE MANAGER -CONT VENT SUPPORT. SURGICAL CONSULT FOR DIALYSIS CATH PLACEMENT IN PLACE. Addendum: 09/14/20 at 1255 by Heydi Muñoz CM REMAINS INTUBATED TO VENT FIO2 50%, PEEP 10 AD O2 SAT 92%. SEDATED WITH PROPOFOL AND FENTANYL. ON ZOSYN. SEEN BY DEANNE MOLINA 09/13/2020. PER PULPA - CONT VENT SUPPORT, WILL START ON SEDATION VACATION. Addendum: 09/21/20 at 1553 by Heydi Muñoz CM REMAINS INTUBATED TO VENT FIO2 55%, PEEP 5, O2 SAT 93%. ON FENTANYL DRIP. SEEN BY PULMO - CONT VENT SUPPORT, DAILY SEDATION VACATION TOLERATED. Addendum: 09/26/20 at 1156 by Heydi Muñoz REMAINS ORALLY INTUBATED TO VENT, FIO2 50%, PEEP 5, O2 SAT 94%. SEDATED WITH FENTANYL. ON MEROPENEM, FLUCONAZOLE, VANCOMYCIN, DECADRON. CURRENT LABS INCLUDE WBC 28.8, H/H 8.9/27.7, NA/K 141/5.5, BUN/CREA 146/5.9, MAG 3.1, ALB 1.7, D DIMER >5000. PER PULMO - DAILY SAT, WEAN FIO2 TOLERATED, GOAL ACVC MODE TOLERATED, UNABLE TO WEAN TO EXTUBATE, NOW INDICATED FOR TRACH AND PEG. PER SURGERY - TRACH AND PEG WITH DR. ALVAREZ THIS WEEK IF READY. Addendum: 09/27/20 at 1102 by Heydi Muñoz CM PER DR. TANG, STILL WAITING FOR SURGERY TO SCHEDULE FOR TRACH AND PEG HOWEVER, FIO2 WENT UP TO 80% TODAY.
--- NOTE | 2020-09-07 15:30 | NUR ---
CHECKED ON PATIENT. PATIENT IS LAYING IN BED WATCHING TV. NO DISTRESS NOTED. WILL CONTINUE TO MONITOR.
[2020-09-07 16:00] VITALS: BP 149/76
[2020-09-07] MEDS: REMDESIVIR (EUA) 100 MG in NACL 0.9% 100 ML IV SCH (17:00)
--- NOTE | 2020-09-07 19:41 | NUR ---
ENDORSED TO SALT LIFTER NURSE FOR CONTINUITY OF CARE.
--- NOTE | 2020-09-07 19:42 | NUR ---
RECEIVED ENDORSEMENT FROM AM SHIFT RN. AAOX4, ON 15L NRB, NO SOB, NO DISTRESS, SAFETY MEASURES IN PLACE, ISO PRECAUTION OBSERVED, PLAN OF CARE DISCUSSED, CALL LIGHT WITHIN REACH.
[2020-09-07 20:00] VITALS: BP 149/84
[2020-09-07] MEDS: TEMAZEPAM 15 MG CAP PO SCH (20:34)
--- NOTE | 2020-09-07 20:41 | NUR ---
DUE MEDS GIVEN ORDERED, TOLERATED WELL, CALL LIGHT WITHIN REACH.
[2020-09-07] MEDS: ONDANSETRON 4 MG/2 ML VIAL IVP PRN (20:49)
[2020-09-08] VITALS (12 sets, daily range): BP systolic 76–176; BP diastolic 48–90
--- NOTE | 2020-09-08 | NUR ---
V/S TAKEN AND RECORDED, KEPT WARM, O2 SAT 87%, KEPT WARM, CALL LIGHT WITHIN REACH.
--- NOTE | 2020-09-08 00:15 | NUR ---
PT DESAT TO 60'S. INCREASE FIO2 ON NRB + HIGHFLOW HUMIDIFIER PT MAINTAIN SATURATION OF 88.
[2020-09-08] MEDS: HYDROcodone/APAP 5/325 MG 1 TAB TAB PO PRN (01:40)
[2020-09-08] MEDS: NACL 0.9% 1,000 ML IV SCH ×2 (01:44→17:42)
--- NOTE | 2020-09-08 03:16 | NUR ---
SLEEPING, RESPIRATION EVEN AND UNLABORED, CALL LIGHT WITHIN REACH.
[2020-09-08] MEDS: BLOOD GLUCOSE MONITORING 1 DEV DEV FS SCH ×4 (06:46→21:00)
[2020-09-08] MEDS: INSULIN LISPRO SLIDING SCALE 100 UNITS/ML VIAL SUBQ PRN ×2 (06:48→12:25)
--- NOTE | 2020-09-08 07:48 | NUR ---
PT STABLE, NO DISTRESS, NO SOB, ENDORSED TO AM SHIFT RN FOR CONTINUITY OF CARE.
[2020-09-08 08:30] LABS: ALBUMIN 2.7 g/dL (3.4-5.0); ANION GAP 15.3 (8-16); CARBON DIOXIDE 24.7 mmol/L (21-32); CREATININE 0.7 mg/dL (0.6-1.3); MAGNESIUM 1.9 mg/dL (1.8-2.4)
--- NOTE | 2020-09-08 09:00 | NUR ---
Patient agitated, stating he can't breathe. J4uiv=10% on O2 @ 15Lpm via NRB. O2sat decreases to 85% with min exertion. Encouraged patient to take deep breaths, reassurance provided. Pt able to rest in bed, watching TV, O2sat 90% on O2 @ 15Lpm via NRB. Call light within reach.
[2020-09-08] MEDS: DEXAMETHASONE 4 MG/ML VIAL IVP SCH (09:09)
[2020-09-08] MEDS: DOCUSATE SODIUM 100 MG GELCAP PO SCH (09:09)
[2020-09-08] MEDS: APIXABAN 2.5 MG TAB PO SCH ×2 (09:10→21:00)
[2020-09-08] MEDS: AZITHROMYCIN 500 MG in DEXTROSE 5% 250 ML IV SCH (09:54)
--- NOTE | 2020-09-08 10:30 | NUR ---
Patient talking on the phone. O2sat decreases to 84% while talking, 90% at rest, NRB mask in place with O2 @ 15Lpm. Encouraged patient to take deep breaths and avoid unnecessary exertion. Instructed to lie down on his stomach to promote lung expansion. Patient verbalized understanding and states he will reposition later.
[2020-09-08 12:11] LABS: BASOPHILS % (AUTO) 0.1 % (0.0-2.0); HEMATOCRIT 48.6 % (36-52); HEMOGLOBIN 16.6 g/dL (12.0-18.0); LYMPHOCYTES # (AUTO) 0.6 K/uL (2.0-11.5); MEAN CORPUSCULAR HEMOGLOBIN 29 pg (27-31); MEAN CORPUSCULAR HGB CONC 34 g/dL (33-37); MEAN CORPUSCULAR VOLUME 84.8 fL (80-94); MONOCYTES # (AUTO) 0.6 K/uL (0.8-1.0); MONOCYTES % (AUTO) 5.9 % (1.7-9.3); NEUTROPHILS # (AUTO) 8.9 K/uL (1.8-7.7); PLATELET COUNT (AUTO) 69 K/uL (140-450); RED BLOOD CELL COUNT(AUTO) 5.73 MIL/uL (4.20-6.10); RED CELL DISTRIBUTION WIDTH 13.4 % (11.6-13.7); WHITE BLOOD COUNT (AUTO) 10.2 K/uL (4.8-10.8)
[2020-09-08] MEDS ORDERED: LORazepam 2 MG/ML VIAL IVP PRN (13:50)
[2020-09-08] MEDS ORDERED: LORazepam 2 MG/ML VIAL ONE (13:50)
--- NOTE | 2020-09-08 14:15 | NUR ---
Patient with SOB and increased RR in the 40s. 2 mg Ativan administered per MD Dhaliwal. Pt need to be intubated d/t patient breathing effort. Intubated at 1419 8.0 and 23 at the teeth. Patient quickly became bradycardic, 1mg atropine adminstered at 1420. Pt went into asystole, 1 mg epi administered and cpr initiated- code blue called. pulse check demonstrated PEA- cpr initiated. 1422 1mg epi administered. 1424 ROSC and pt in sinus tach- 130s. propofol initiated and levo is ready in case of low SBP. Will monitor closely.
[2020-09-08] MEDS ORDERED: PROPOFOL 1000 MG/100 ML PREMIX 100 ML IV ONE ×3 (14:16→18:26)
[2020-09-08] MEDS ORDERED: ETOMIDATE 20 MG/10 ML VIAL IVP ONE (14:20)
[2020-09-08] MEDS ORDERED: SUCCINYLCHOLINE CHLORIDE 200 MG/10 ML VIAL IVP ONE (14:20)
--- NOTE | 2020-09-08 14:30 | NUR ---
vent settings at this time are AC/VC 550vT, 18 rate, peep of 12 and 100% fio2. levophed initiated d/t SPB in the 60s, propofol initiated for sedation.
--- NOTE | 2020-09-08 15:30 | NUR ---
Spoke to patient's mother Rosa and notified her that patient is now intubated with ventilator. Informed her that we will be moving patient to ICU. Rosa verbalized understanding and agree with care plan at this time.
--- NOTE | 2020-09-08 16:22 | NUR ---
SPOKE TO DR HAMLIN REGARDING CRITICAL RESULTS POST INTUBATION PT CURRENTLY ON VC 550 +12 f 18 100% ABG - PH 7.071 CO2 52.3 PO2 75.8 HCO3 14.8 BE -15.6 DR HAMLIN REQUESTING TITRATE VT 600 +10, f24 W/ REPEAT ABG 2HOURS
--- NOTE | 2020-09-08 17:30 | NUR ---
RECEIVED PATIENT TRANSFER FROM TELE UNIT ROOM 117 TO ICU BED 8, WITH ASSIST, TRANSFERRED PATIENT TO ICU BED. CONNECTED PATIENT TO DECAL APPLIER, PATIENT IS INTUBATED ETT TO VENT FIO2 100%, RESPIRATION TACHYPEAN AND SHALLOW, SPO2 AT 94% AT THIS TIME. PUPILS 3MM, SLUGGISH, DOES NOT TRACK. CHANGED PATIENT INTO YELLOW GOWN, AND USED PILLOW TO OFFLOADED PRESSURE AND DISTRIBUTE PRESSURE. IV ON LFA 18G, RUNNING LEVOPHED 28 MCG/MIN AND RFA 20G RUNNING PROPOFOL 45 MCG/KG/MIN. OGT IN PLACE, NOT RUNNING AT THIS TIME. BILATERAL SOFT WRIST RESTRAINTS IN PLACE, NO SIGNS OF INJURY, CAPILLARY REFILLED < 3 SECOND. SKIN WARM TO TOUCH, CLEAN AND INTACT. SAFETY MEASURES IN PLACE. HOB ELEVATED 35 DEGREE, BED IN LOW POSITION, AND BED LOCKED.
--- NOTE | 2020-09-08 17:32 | NUR ---
BERGMAN INSERTED, YELLOW URINE SEEN, SECURED.
--- NOTE | 2020-09-08 17:42 | NUR ---
BLOOD GLUCOSE 426, MD PAGED, AWAITING FOR MD TO RETURN CALL.
[2020-09-08] MEDS ORDERED: NOREPINEPHRINE 4 MG/4 ML VIAL IV ONE (18:00)
--- NOTE | 2020-09-08 18:06 | NUR ---
RECEIVED A CALL BACK FROM DR HAMLIN, INFORMED BG CHECKED 426, DR HAMLIN WAS AWARE, ORDERED 25 UNIT LANTUS SUBQ NOW, AND LANTUS 25 UNIT SUBQ DAILY. REPEATED AND CONFIRMED WITH DR HAMLIN, WILL INPUT ORDER ACCORDINGLY.
[2020-09-08] MEDS ORDERED: INSULIN LANTUS 100 UNITS/ML 10 ML VIAL SUBQ SCH (18:10)
--- NOTE | 2020-09-08 18:12 | NUR ---
PHARMACY AFTER HOUR, OVERRIDE, 25 UNIT LANTUS GIVEN VIA SUBQ PER DR HAMLIN ORDER.
--- NOTE | 2020-09-08 18:35 | NUR ---
STARTED A NEW BOTTLE OF PROPOFOL AT 45 MCG, PRIME NEW TUBINGS. PHARMACY AFTER HOUR OVERRIDE.
[2020-09-08] MEDS: REMDESIVIR (EUA) 100 MG in NACL 0.9% 100 ML IV SCH (18:38)
--- NOTE | 2020-09-08 18:43 | NUR ---
ADMINISTERED SCHEDULED REMDESIVIR PER MD ORDER.
--- NOTE | 2020-09-08 19:35 | NUR ---
RECEIVED PATIENT ON BED WITH HOB ELEVATED TO 30 DEGREE; ORALLY INTUBATED AND VENTILATED AT 100% FIO2; SEDATED WITH PROPOFOL DRIP AT 45 MCG/KG/MIN VIA G 18 IV CANNULA ON LEFT ARM. CARDIACSCOPE SHOWS ON SINUS TACHY HR 111/MN. IVF IN PROGRESS NORMAL SALINE AT 80 ML/HR VIA G20 IV CANNULA ON RIGHT AC. ABDOMEN IS SOFT; HYPOACTIVE BOWEL SOUNDS. NGT IN PLACE, CLAMPED AND KEPT NPO FOR NOW.
--- NOTE | 2020-09-08 19:42 | NUR ---
ENDORSED PATIENT TO OUTSIDE DEALER SALES REPRESENTATIVE NURSE ANNALISE FOR CONTINUITY OF CARE. ENDORSED THAT PLASMA IS READY IS TO BE TRANSFUSED, AND PICC CONSENT, FNS CONSULT FOR OGT FEEDING IS PENDING.
[2020-09-08] MEDS: TEMAZEPAM 15 MG CAP PO SCH (21:00)
--- NOTE | 2020-09-08 22:20 | NUR ---
TRANSFUSED 1 UNIT CONVALESCENT PLASMA AFTER CHECKING WITH ANOTHER CHARLY OMALLEY. V/S MONITORED CLOSELY DURING TRANSFUSION.
[2020-09-08] MEDS: PROPOFOL 1000 MG/100 ML PREMIX 100 ML IV PRN (22:24)
[2020-09-09] VITALS (28 sets, daily range): BP systolic 96–163; BP diastolic 44–92
--- NOTE | 2020-09-09 02:00 | NUR ---
NOTED WITH LARGE AMOUNT OF COFFEE GROUND GASTRIC OUTPUT FROM THE NGT; REFERRED TO DR. HAMLIN WITH ORDER TO CONNECT NGT TO LOW INTERMITTENT SUCTION AND REQUEST FOR TYPE AND XMATCH 2 UNITS PRBC; CARRIED OUT.
[2020-09-09] MEDS ORDERED: ACETAMINOPHEN 650 MG SUPP RC PRN (02:05)
[2020-09-09] MEDS: PROPOFOL 1000 MG/100 ML PREMIX 100 ML IV PRN ×4 (02:22→19:23)
--- NOTE | 2020-09-09 04:00 | NUR ---
MORNING BED BATH DONE; PROPOFOL DRIP TITRATED DOWN PER PROTOCOL.
--- NOTE | 2020-09-09 05:09 | NUR ---
Pt remains unchanged in condition. FiO2 decreased to 80% with SpO2 holding above 98%
[2020-09-09 06:15] LABS: BASOPHILS % (AUTO) 0.1 % (0.0-2.0); EOSINOPHILS % (AUTO) 0.1 % (0.0-4.0); HEMATOCRIT 43.9 % (36-52); HEMOGLOBIN 14.9 g/dL (12.0-18.0); LYMPHOCYTES # (AUTO) 0.7 K/uL (2.0-11.5); LYMPHOCYTES % (AUTO) 4.7 % (20.5-51.1); MEAN CORPUSCULAR HEMOGLOBIN 29 pg (27-31); MEAN CORPUSCULAR HGB CONC 34 g/dL (33-37); MEAN CORPUSCULAR VOLUME 84.6 fL (80-94); MONOCYTES # (AUTO) 0.6 K/uL (0.8-1.0); MONOCYTES % (AUTO) 4.1 % (1.7-9.3); NEUTROPHILS # (AUTO) 12.7 K/uL (1.8-7.7); PLATELET COUNT (AUTO) 60 K/uL (140-450); RED BLOOD CELL COUNT(AUTO) 5.18 MIL/uL (4.20-6.10); RED CELL DISTRIBUTION WIDTH 13.7 % (11.6-13.7)
[2020-09-09] MEDS: INSULIN LISPRO SLIDING SCALE 100 UNITS/ML VIAL SUBQ PRN ×4 (07:30→22:43)
[2020-09-09] MEDS: BLOOD GLUCOSE MONITORING 1 DEV DEV FS SCH ×4 (07:30→21:00)
[2020-09-09 07:49] LABS: ALBUMIN 2.5 g/dL (3.4-5.0); ANION GAP 19.2 (8-16); CARBON DIOXIDE 25.3 mmol/L (21-32); CREATININE 2.9 mg/dL (0.6-1.3); MAGNESIUM 2.4 mg/dL (1.8-2.4); POTASSIUM 4.5 mmol/L (3.5-5.1); TOTAL BILIRUBIN 0.6 mg/dL (0.0-1.0)
[2020-09-09] MEDS: NACL 0.9% 1,000 ML IV SCH ×3 (07:50→21:33)
--- NOTE | 2020-09-09 08:00 | NUR ---
RECEIVED BEDSIDE REPORT FROM HEDGE FUND ACCOUNTANT NURSE, RASS -3, PT IS ETT TO VENT AC V/C FIO2 80%, RATE 24, PEEP 10, SATURATING @ 98%. S1S2 NOTED UPON AUSCULTATION, PT HAS RT FA PERIPHERAL IV RUNNING PROPOFOL 30 MCG/KG/MIN AND LT AC RUNNING NS 0.9% @ 80 ML/HR. BOWEL SOUNDS ACTIVE IN ALL 4 QUADRANTS. OG-TUBE TO INTERMITTENT SUCTION, RESIDUAL: 350ML OF COFFEE GROUND EMESIS. BERGMAN CATH IN PLACE DRAINING TO GRAVITY. SKIN WARM DRY, SKIN INTACT. SAFETY MEASURES IN PLACE, BED LOW AND LOCKED, SIDE RAILS UP, CALL LIGHT WITHIN REACH, WILL CONTINUE TO MONITOR
[2020-09-09] MEDS: DOCUSATE SODIUM 100 MG GELCAP PO SCH (09:00)
[2020-09-09] MEDS: APIXABAN 2.5 MG TAB PO SCH ×2 (09:00→21:00)
[2020-09-09] MEDS: AZITHROMYCIN 500 MG in DEXTROSE 5% 250 ML IV SCH (09:30)
[2020-09-09] MEDS: PANTOPRAZOLE 40 MG INJ VIAL IVP SCH ×2 (09:39→21:33)
[2020-09-09] MEDS: DEXAMETHASONE 4 MG/ML VIAL IVP SCH (09:40)
[2020-09-09] MEDS: INSULIN LANTUS 100 UNITS/ML 10 ML VIAL SUBQ SCH (09:43)
--- NOTE | 2020-09-09 11:30 | NUR ---
PTs TEMP IS 100.3, COOLING MEASURES IN PLACE, WILL CONTINUE TO MONITOR CLOSELY.
--- NOTE | 2020-09-09 12:00 | NUR ---
PTs LATEST TEMP 99.8F, COOLING MEASURES IN PLACE, WILL CONT TO MONITOR CLOSELY.
--- NOTE | 2020-09-09 13:20 | NUR ---
FAMILY CALLED, UPDATED ON PTs CONDITION
--- NOTE | 2020-09-09 13:31 | NUR ---
OBTAINED CONSENT FROM LOY BUENO (DAUGHTER) FOR PICC LINE INSERTION.
--- NOTE | 2020-09-09 13:45 | NUR ---
09/09/20 RD INITIAL ASSESSMENT COMPLETED PLEASE REFER TO NUTRITION ASSESSMENT UNDER CARE ACTIVITY FOR ESTIMATED NUTRITIONAL NEEDS. RD RECOMMENDATIONS: 1. RECOMMEND CONTINUE NPO DIET. 2. WHEN MEDICALLY CLEARED FOR TUBE FEEDING, RECOMMEND GLUCERNA @70MLS/HR (PROVIDES 2016KCALS, 100.8GM PROTEIN, SUFFICIENT TO MEET 100% ESTIMATED NEEDS) 3. WHEN MEDICALLY CLEARED FOR TF, START GLUCERNA 1.2@30MLS/HR. INCREASE RATE, TOLERATED, BY 10MLS/HR Q8HRS TO REACH GOAL RATE OF 70MLS/HR 4. F/U 2-3 DAYS; HIGH RISK SEAN MENDOZA MBA, RD
--- NOTE | 2020-09-09 14:00 | NUR ---
PICC LINE NURSE ON UNIT.
--- NOTE | 2020-09-09 16:00 | NUR ---
PTs LATEST TEMP IS 99.3F, COOLING MEASURES IN PLACE, WILL CONT TO MONITOR. ROUTINE CARE GIVEN, VAP ORAL CARE, BERGMAN CARE, CHG BATH. SAFETY MEASURES, CALL LIGHT WITHIN REACH, WILL CONT TO MONITOR.
--- NOTE | 2020-09-09 18:00 | NUR ---
PTs LATEST TEMP WAS 98.9F. WILL CONT TO MONITOR CLOSELY.
[2020-09-09] MEDS: TEMAZEPAM 15 MG CAP PO SCH (21:00)
--- NOTE | 2020-09-09 21:20 | NUR ---
RECEIVED PATIENT ON DOCUMENTED VENT SETTINGS. VENT PLUGGED INTO RED OUTLET. BMV AT BEDSIDE.ETT SECURED WITH TAPE. ALARMS SET. SX MODERATED THICK RED. NEW MOYA AND HME PLACED ON PATIENT. VITAL SIGNS STABLE. WILL CONT TO MONITOR
[2020-09-10] VITALS (31 sets, daily range): BP systolic 86–154; BP diastolic 45–73
[2020-09-10] MEDS: PROPOFOL 1000 MG/100 ML PREMIX 100 ML IV PRN ×3 (01:00→19:49)
[2020-09-10] MEDS ORDERED: PIPERACILLIN/TAZOBACTAM 2.25 GM VIAL IV ONE (01:23)
[2020-09-10] MEDS: PIPERACILLIN/TAZOBACTAM 2.25 GM in DEXTROSE 5% 50 ML IV SCH ×3 (01:43→21:00)
--- NOTE | 2020-09-10 01:53 | NUR ---
ETT TAPED REMOVED AND REPLACED WITH ANKORFAST.
[2020-09-10 06:34] LABS: MAGNESIUM 2.5 mg/dL (1.8-2.4); PHOSPHORUS 6.3 mg/dL (2.5-4.9)
[2020-09-10 06:46] LABS: ANION GAP 21.1 (8-16); CARBON DIOXIDE 24.8 mmol/L (21-32); POTASSIUM 3.9 mmol/L (3.5-5.1)
[2020-09-10 07:29] LABS: CREATININE 5.3 mg/dL (0.6-1.3)
[2020-09-10] MEDS: BLOOD GLUCOSE MONITORING 1 DEV DEV FS SCH ×4 (07:30→21:00)
--- NOTE | 2020-09-10 07:45 | NUR ---
PAGED DR DEL REAL ABOUT CRITICAL LAB: BUN 72 AND CREATININE 5.3, AWAITING CALL BACK
--- NOTE | 2020-09-10 08:00 | NUR ---
RECEIVED BEDSIDE REPORT FROM GRAVITY FLOW IRRIGATOR NURSE, RASS -3, PT IS ETT TO VENT AC V/C FIO2 60%, RATE 24, PEEP 8, SATURATING @ 95%. S1S2 NOTED UPON AUSCULTATION, PT HAS PT HAS STEFAN PICC LINE RUNNING PROPOFOL 30 MCG/KG/MIN, ASYMPTOMATIC AND PATENT. LT AC PERIPHERAL IV RUNNING NS 0.9% @ 100 ML/HR, ASYMPTOMATIC AND PATENT. RT FA PERIPHERAL IV SALINE LOCK, ASYMPTOMATIC AND PATENT. BOWEL SOUNDS ACTIVE IN ALL 4 QUADRANTS. OG-TUBE TO FEED, VITAL AF 1.2 CURRENTLY AT 4OML/HR WITH A [id number]/HR, FWF: 100 Q8HR, RESIDUAL: 0ML. BERGMAN CATH IN PLACE DRAINING TO GRAVITY. SKIN WARM DRY, SKIN INTACT. SAFETY MEASURES IN PLACE, BED LOW AND LOCKED, SIDE RAILS UP, CALL LIGHT WITHIN REACH, WILL CONTINUE TO MONITOR.
--- NOTE | 2020-09-10 08:00 | NUR ---
PTs CURRENT TEMP 98.5F WILL CONT TO MONITOR CLOSELY.
[2020-09-10] MEDS: NACL 0.9% 1,000 ML IV SCH ×2 (08:30→20:55)
[2020-09-10] MEDS: INSULIN LISPRO SLIDING SCALE 100 UNITS/ML VIAL SUBQ PRN ×4 (08:43→23:07)
[2020-09-10] MEDS: APIXABAN 2.5 MG TAB PO SCH ×2 (09:00→21:00)
[2020-09-10] MEDS: DEXAMETHASONE 4 MG/ML VIAL IVP SCH (09:10)
[2020-09-10] MEDS: DOCUSATE SODIUM 100 MG GELCAP PO SCH (09:10)
[2020-09-10] MEDS: INSULIN LANTUS 100 UNITS/ML 10 ML VIAL SUBQ SCH (09:13)
--- NOTE | 2020-09-10 10:00 | NUR ---
NO S/S OF DISTRESS NOTED, SAFETY MEASURES IN PLACE, WILL CONT. TO MONITOR.
--- NOTE | 2020-09-10 11:50 | NUR ---
DR HUYEN MERCADO ON THE UNIT, UPDATED ON PTs CONDITION. AWARE OF LAB RESULTS.
--- NOTE | 2020-09-10 12:00 | NUR ---
PTs CONDITION REMAINS UNCHANGED. SAFETY MEASURES IN PLACE, WILL CONT TO MONITOR.
[2020-09-10] MEDS ORDERED: fentaNYL citrate 1 MG in NACL 0.9% 80 ML IV PRN (12:55)
--- NOTE | 2020-09-10 13:00 | NUR ---
DR CAMPOS ON UNIT, PER DR CAMPOS, ORDER FENTANYL DRIP FOR SEDATION AND LACTULOSE 30 GM ONCE
[2020-09-10] MEDS ORDERED: LACTULOSE 20 GM/30 ML UDC PO SCH (13:30)
[2020-09-10] MEDS: fentaNYL citrate - 50mL vial 2.5 MG in NACL 0.9% 200 ML IV PRN (14:30)
--- NOTE | 2020-09-10 16:00 | NUR ---
ROUTINE CARE GIVEN, BERGMAN CARE, VAP ORAL CARE, CHG BATH, NEW LINEN AND GOWN. PT TOLERATED IT WELL. SAFETY MEASURES IN PLACE, BED LOW AND LOCKED, SIDE RAILS UP, CALL LIGHT WITHIN REACH, WILL CONT TO MONITOR.
--- NOTE | 2020-09-10 18:00 | NUR ---
NO S/S OF DISTRESS NOTED, REPOSITIONED PT, TOLERATED IT WELL. SAFETY MEASURES IN PLACE, WILL CONT TO MONITOR.
--- NOTE | 2020-09-10 19:30 | NUR ---
RECEIVED PATIENT ON BED WITH HOB ELEVATED TO 30 DEGREE,ORALLY INTUBATED AND VENTILATED AT 70% FIO2, SO2 95%. SEDATED WITH PROPOFOL DRIP AT 30 MCG/KG/MIN AND WITH FENTANYL DRIP AT 0.5 MCG/KG/HR TO KEEP RASS -3 INFUSING THRU PICC LINE ON RIGHT UPPER ARM. IVF IN PROGRESS NORMAL SALINE AT 100 ML/HR VIA IV CANNULA ON LEFT WRIST, INTACT. ABDOMEN IS SOFT HYPOACTIVE BOWEL SOUNDS;ON CONTINOUS TUBE FEEDING VITAL AF AT 40 ML/HR VIA OGT; TOLERATED WITH MINIMAL RESIDUAL. WITH BERGMAN CATH IN SITU TO GRAVITY DRAINAGE BAG, DRAINING TO CLEAR YELLOW URINE OUTPUT; PATENT AND INTACT.
--- NOTE | 2020-09-10 20:30 | NUR ---
TURNED AND REPOSITIONED PATIENT; ORAL CARE DONE WITH VAP KIT.
[2020-09-10] MEDS: FAMOTIDINE 20 MG/2 ML VIAL IV SCH (21:00)
[2020-09-10] MEDS: TEMAZEPAM 15 MG CAP PO SCH (21:00)
[2020-09-11] VITALS (29 sets, daily range): BP systolic 114–148; BP diastolic 51–70
[2020-09-11] MEDS: PROPOFOL 1000 MG/100 ML PREMIX 100 ML IV PRN ×4 (01:10→23:59)
--- NOTE | 2020-09-11 03:30 | NUR ---
MORNING BED BATH DONE; REPOSITIONED PATIENT.
[2020-09-11] MEDS: PIPERACILLIN/TAZOBACTAM 2.25 GM in DEXTROSE 5% 50 ML IV SCH ×3 (05:00→20:34)
[2020-09-11 06:21] LABS: BASOPHILS % (AUTO) 0.2 % (0.0-2.0); HEMATOCRIT 35.4 % (36-52); LYMPHOCYTES # (AUTO) 0.2 K/uL (2.0-11.5); LYMPHOCYTES % (AUTO) 2.1 % (20.5-51.1); MEAN CORPUSCULAR HEMOGLOBIN 29 pg (27-31); MEAN CORPUSCULAR HGB CONC 34 g/dL (33-37); MEAN CORPUSCULAR VOLUME 85.7 fL (80-94); MONOCYTES # (AUTO) 0.8 K/uL (0.8-1.0); MONOCYTES % (AUTO) 7.3 % (1.7-9.3); NEUTROPHILS # (AUTO) 9.8 K/uL (1.8-7.7); NEUTROPHILS % (AUTO) 90.4 % (42.2-75.2); PLATELET COUNT (AUTO) 101 K/uL (140-450); RED BLOOD CELL COUNT(AUTO) 4.13 MIL/uL (4.20-6.10); RED CELL DISTRIBUTION WIDTH 13.5 % (11.6-13.7); WHITE BLOOD COUNT (AUTO) 10.8 K/uL (4.8-10.8)
[2020-09-11 06:39] LABS: ANION GAP 17.8 (8-16); CARBON DIOXIDE 25.8 mmol/L (21-32); POTASSIUM 4.6 mmol/L (3.5-5.1)
[2020-09-11 07:24] LABS: CREATININE 6.5 mg/dL (0.6-1.3)
--- NOTE | 2020-09-11 07:30 | NUR ---
RECEIVED REPORT FROM BIOMEDICAL SERVICE ENGINEER NURSE FOR CONTINUITY OF CARE. PT IN BED, SUPINE POSITION, HOB ELEVATED. RASS-3, FLACC 0, NO SOB, NO APPARENT DISTRESS. ETT TO VENT: AC/PC FIO2 80% R 22 PEEP 8. ABD SOFT, NON-DISTENDED, NON-TENDER. WITH STEFAN PICC, RUNNING PROPOFOL 25MCG, FENTANYL 0.5MCG, NS 100CC/HR. BERGMAN INTACT AND PATENT. OGT TO TUBE FEEDING. SAFETY PRECAUTIONS IN PLACE. ISOLATION PRECAUTION OBSERVED. WILL CONT TO MONITOR.
[2020-09-11] MEDS: BLOOD GLUCOSE MONITORING 1 DEV DEV FS SCH ×4 (07:52→21:00)
[2020-09-11] MEDS: DEXAMETHASONE 4 MG/ML VIAL IVP SCH (09:00)
[2020-09-11] MEDS: APIXABAN 2.5 MG TAB PO SCH ×2 (09:00→21:30)
[2020-09-11] MEDS: INSULIN LANTUS 100 UNITS/ML 10 ML VIAL SUBQ SCH (09:00)
[2020-09-11] MEDS: DOCUSATE SODIUM 100 MG GELCAP PO SCH (09:00)
--- NOTE | 2020-09-11 09:30 | NUR ---
DUE MORNING MEDS GIVEN. ORAL CARE AND BERGMAN CARE DONE. TURNED AND REPOSITIONED PT
[2020-09-11] MEDS: NACL 0.9% 1,000 ML IV SCH ×2 (10:25→21:00)
[2020-09-11] MEDS: INSULIN LISPRO SLIDING SCALE 100 UNITS/ML VIAL SUBQ PRN ×3 (12:15→22:48)
--- NOTE | 2020-09-11 14:30 | NUR ---
SEEN BY DR LING. ADJUSTED VENT SETTINGS. ORDERED ABG AFTER 1 HOUR
--- NOTE | 2020-09-11 16:00 | NUR ---
ABGs REPORTED TO DR LING. ORDERED TO CHANGE VENT SETTINGS. REPEAT ABG IN 2HRS
--- NOTE | 2020-09-11 19:20 | NUR ---
RECEIVED PATIENT ON BED WITH HOB ELEVATED TO 30 DEGREE; SEDATED RASS -3 WITH PROPOFOL AND FENTANYL DRIP. ORALLY INTUBATED AND VENTILATED AT 65% FIO2. CARDIACSCOPE SHOWS ON SINUS RHYTHM HR 78/MIN NO ARRHYTHMIAS SEEN. IVF IN PROGRESS NORMAL SALINE AT 100 ML/HR VIA PICC LINE ON RIGHT UPPER ARM. ABDOMEN IS SOFT, HYPOACTIVE BOWEL SOUNDS; ON CONTINOUS TUBE FEEDING NEPRO AT 40 ML/HR VIA OGT; TOLERATED WITH SMALL AMOUNT OF RESIDUALS.
[2020-09-11] MEDS: FAMOTIDINE 20 MG/2 ML VIAL IV SCH (20:42)
[2020-09-11] MEDS: TEMAZEPAM 15 MG CAP PO SCH (21:00)
[2020-09-12] VITALS (31 sets, daily range): BP systolic 128–168; BP diastolic 57–96
--- NOTE | 2020-09-12 00:18 | NUR ---
ABG WAS DRAWN LATE DUE TO RT AVAILABILITY RTs HAVE BEEN RESPONDING TO CODES DR LING WAS CALLED AND DR TANG RETURNED CALL AND WAS INFORMED OF CRITICAL ABG VALUES PH 7.255 CO2 49.5 PO2 93.7 HCO3 21.5 BE -5.[address] TANG RATE WAS INCREASED TO 26 ALONG WITH VERBAL ORDER ABG IN AM
--- NOTE | 2020-09-12 03:30 | NUR ---
MORNING BED BATH DONE; REPOSITIONED PATIENT.
--- NOTE | 2020-09-12 05:31 | NUR ---
PT RECEIVED ON SETTINGS NOTATED/CHARTED PC 20 +8, f24 Ti 0.9 PT WAS RECEIVED ON 65% BUT WAS ALSO TITRATED TO 60%
[2020-09-12] MEDS: PIPERACILLIN/TAZOBACTAM 2.25 GM in DEXTROSE 5% 50 ML IV SCH ×3 (05:53→20:25)
--- NOTE | 2020-09-12 07:29 | NUR ---
ABG DRAWN WITHOUT INCIDENT AND RESULTS READ BACK TO AND NO CHANGES MADE TO VENT
--- NOTE | 2020-09-12 08:00 | NUR ---
RECEIVED BEDSIDE REPORT FROM DOUGH MIXER OPERATOR NURSE, RASS -3, PT IS ETT TO VENT AC V/C FIO2 60%, RATE 24, PEEP 8, SATURATING @ 98%. S1S2 NOTED UPON AUSCULTATION, PT HAS PT HAS STEFAN PICC LINE RUNNING PROPOFOL 10 MCG/KG/MIN, ASYMPTOMATIC AND PATENT. FENTANYL 0.5 MCG/KG/HR. LT AC PERIPHERAL IV RUNNING NS 0.9% @ 75 ML/HR, ASYMPTOMATIC AND PATENT. RT FA PERIPHERAL IV SALINE LOCK, ASYMPTOMATIC AND PATENT. BOWEL SOUNDS ACTIVE IN ALL 4 QUADRANTS. OG-TUBE TO FEED, VITAL AF 1.2 RUNNING AT 50ML/HR, FWF: 100 Q8HR, RESIDUAL: 0ML. BERGMAN CATH IN PLACE DRAINING TO GRAVITY. SKIN WARM DRY, SKIN INTACT. SAFETY MEASURES IN PLACE, BED LOW AND LOCKED, SIDE RAILS UP, CALL LIGHT WITHIN REACH, WILL CONTINUE TO MONITOR.
[2020-09-12] MEDS: BLOOD GLUCOSE MONITORING 1 DEV DEV FS SCH ×4 (08:25→21:00)
[2020-09-12] MEDS: INSULIN LISPRO SLIDING SCALE 100 UNITS/ML VIAL SUBQ PRN ×4 (08:25→21:28)
[2020-09-12 08:48] LABS: CARBON DIOXIDE 24.1 mmol/L (21-32)
[2020-09-12 08:59] LABS: POTASSIUM 6.1 mmol/L (3.5-5.1)
[2020-09-12 09:00] LABS: CREATININE 7.7 mg/dL (0.6-1.3)
[2020-09-12] MEDS: INSULIN LANTUS 100 UNITS/ML 10 ML VIAL SUBQ SCH ×2 (09:00→09:38)
--- NOTE | 2020-09-12 09:20 | NUR ---
PAGED DR PETERSON REGARDING CRITICAL LABS: K: 6.1, BUN: 124, CREATININE: 7.7. PER DR PETERSON, GIVE 1 AMPULE OF CALCIUM GLUCONATE STAT, 10 UNITS HUMILIN IV STAT, 1 AMPULE SODIUM BICARBONATE STAT, 30G OF LOKELMA NG STAT, HOLD FEEDING TODAY AND RECHECK GLUCOSE IN 1 HR.
[2020-09-12] MEDS: APIXABAN 2.5 MG TAB PO SCH ×2 (09:38→20:33)
[2020-09-12] MEDS: DOCUSATE 100 MG/10 ML UDC GT SCH (09:39)
[2020-09-12] MEDS: DEXAMETHASONE 4 MG/ML VIAL IVP SCH (09:39)
--- NOTE | 2020-09-12 09:51 | NUR ---
PT. ADMITTED WITH LOW EVELINA SCALE AT RISK, CONTINUE TO FOLLOW PRESSURE INJURY PREVENTION INTERVENTIONS. -TURN AND REPOSITION PATIENT Q 2H -ASSESS AND MONITOR SKIN CONDITION DURING POSITION CHANGE -OFFLOAD BILATERAL HEELS BY PLACING PILLOWS UNDER CALVES AT ALL TIMES, UNLESS OTHERWISE CONTRAINDICATED -PRESSURE REDISTRIBUTION BY PLACING PILLOWS AND OFFLOADING SACRALCOCCYX -KEEP SKIN CLEAN AND DRY AT ALL TIMES.
[2020-09-12] MEDS ORDERED: SODIUM ZIRCONIUM CYCLOSILICATE 10 GM POWD.PACK PO SCH (10:15)
[2020-09-12] MEDS ORDERED: CALCIUM GLUCONATE 10% 1000 MG/10 ML VIAL IVP SCH (10:15)
[2020-09-12] MEDS ORDERED: INSULIN REGULAR, HUMAN 100 UNIT/ML VIAL IVP SCH (10:15)
[2020-09-12] MEDS ORDERED: SODIUM BICARBONATE 8.4% PFS 50 MEQ/50 ML SYR IVP SCH (10:15)
[2020-09-12] MEDS: NACL 0.9% 1,000 ML IV SCH (10:30)
[2020-09-12 11:02] LABS: BASOPHILS # (AUTO) 0.1 K/uL (0.00-0.22); BASOPHILS % (AUTO) 0.9 % (0.0-2.0); HEMATOCRIT 33.6 % (36-52); LYMPHOCYTES # (AUTO) 0.2 K/uL (2.0-11.5); LYMPHOCYTES % (AUTO) 2.2 % (20.5-51.1); MEAN CORPUSCULAR HEMOGLOBIN 29 pg (27-31); MEAN CORPUSCULAR HGB CONC 33 g/dL (33-37); MONOCYTES # (AUTO) 0.9 K/uL (0.8-1.0); MONOCYTES % (AUTO) 8.2 % (1.7-9.3); NEUTROPHILS # (AUTO) 9.6 K/uL (1.8-7.7); NEUTROPHILS % (AUTO) 88.7 % (42.2-75.2); PLATELET COUNT (AUTO) 125 K/uL (140-450); RED BLOOD CELL COUNT(AUTO) 3.83 MIL/uL (4.20-6.10); RED CELL DISTRIBUTION WIDTH 13.9 % (11.6-13.7); WHITE BLOOD COUNT (AUTO) 10.8 K/uL (4.8-10.8)
--- NOTE | 2020-09-12 11:47 | NUR ---
sxn pt large amt of blood clot secretions and changed hme and valdivia
--- NOTE | 2020-09-12 12:45 | NUR ---
DR ALVAREZ ON UNIT TO PERFORM HEMODIALYSIS CATHETER PLACEMENT
[2020-09-12] MEDS: PROPOFOL 1000 MG/100 ML PREMIX 100 ML IV PRN (13:36)
--- NOTE | 2020-09-12 14:08 | NUR ---
RAD ON UNIT FOR CHEST XRAY OF HD CATHETER
--- NOTE | 2020-09-12 15:29 | NUR ---
DR WOLFF ON UNIT, UPDATED ABOUT PTs CONDITION
--- NOTE | 2020-09-12 15:30 | NUR ---
RECEIVED BEDSIDE REPORT FROM SUPERVISOR INTELLIGENCE ANALYST NURSE, RASS -3, PT IS ETT TO VENT AC V/C FIO2 60%, RATE 24, PEEP 8, SATURATING @ 98%. S1S2 NOTED UPON AUSCULTATION, PT HAS PT HAS STEFAN PICC LINE RUNNING PROPOFOL 10 MCG/KG/MIN, ASYMPTOMATIC AND PATENT. FENTANYL 0.5 MCG/KG/HR. LT AC PERIPHERAL IV RUNNING NS 0.9% @ 75 ML/HR, ASYMPTOMATIC AND PATENT. RT FA PERIPHERAL IV SALINE LOCK, ASYMPTOMATIC AND PATENT. BOWEL SOUNDS ACTIVE IN ALL 4 QUADRANTS. OG-TUBE TO FEED, VITAL AF 1.2 RUNNING AT 50ML/HR, FWF: 100 Q8HR, RESIDUAL: 0ML. BERGMAN CATH IN PLACE DRAINING TO GRAVITY. SKIN WARM DRY, SKIN INTACT. SAFETY MEASURES IN PLACE, BED LOW AND LOCKED, SIDE RAILS UP, CALL LIGHT WITHIN REACH, WILL CONTINUE TO MONITOR. Addendum: 09/12/20 at 1532 by Samantha Dawson RN RN WRONG TIME, MORNING ASSESSMENT
[2020-09-12] MEDS: fentaNYL citrate - 50mL vial 2.5 MG in NACL 0.9% 200 ML IV PRN (17:00)
--- NOTE | 2020-09-12 17:00 | NUR ---
ROUTINE CARE GIVEN, BERGMANJOVANY HUMPHREY, CHG BATH. DISCOLORATION TO BUTTOCKS AREA NOTED. PURPLE IN COLOR. TURN AND REPOSITION PT AND USING PILLOWS. WILL MONITOR CLOSELY. Addendum: 09/12/20 at 1946 by Samantha Dawson RN RN FEEDING STILL HELD.
--- NOTE | 2020-09-12 19:15 | NUR ---
RECIEVED ENDORSEMENT FROM DAY SHIFT RM, PT SEDATED RASS -3, PT LYING SUPINE W/ HOB 30 DEGREES, SIDE RAILS UP, PT IS RECIEVING DIALYSIS, PT AFEBRILE, ETT TO VENT ACPC FIO2 80% PEEP 8 RATE 26, OGT TO GFEEDING, SR ON MONITOR, LUNGS SOUNDS DIMINISHED B/L, ABD SOFT AND NON TENDER, SKIN WARM AND DRY TO TOUCH, LFA 18 GAUGE, RFA 22 GAUGE, STEFAN PICC RUNNING NS, FENTANYL AND PROPOFOL, FC IN PLACE DRAINING VIA GRAVITY, PT SHOWING NO SIGNS OF ACUTE DISTRESS, SAFETY MEASURES IN PLACE, WILL CONTINUE TO MONITOR
--- NOTE | 2020-09-12 19:54 | NUR ---
1948 PATIENT SXNED NORMAL SALINE DOWN THE TUBE LOTS OF RED BLOODY CLOTS. SATS IMPROVED POST SXNING
[2020-09-12] MEDS: TEMAZEPAM 15 MG CAP PO SCH (20:33)
[2020-09-12] MEDS: FAMOTIDINE 20 MG/2 ML VIAL IV SCH (20:52)
--- NOTE | 2020-09-12 21:45 | NUR ---
ADMINISTERED 2100H MEDICATIONS PER ORDERED, BLOOD GLUCOSE 197, ADMINISTERED 2 UNITS OF HUMALOG PER PROTOCOL
[2020-09-13] VITALS (27 sets, daily range): BP systolic 130–198; BP diastolic 70–101
[2020-09-13] MEDS: NACL 0.9% 1,000 ML IV SCH ×2 (02:25→14:35)
[2020-09-13] MEDS: PIPERACILLIN/TAZOBACTAM 2.25 GM in DEXTROSE 5% 50 ML IV SCH ×3 (04:23→21:25)
[2020-09-13 05:10] LABS: APPEARANCE,URINE CLEAR (CLEAR); BILIRUBIN,URINE NEGATIVE (NEGATIVE); BLOOD, URINE 3+ (NEGATIVE); COLOR,URINE YELLOW (YELLOW); LEUKOCYTE ESTERASE ,URINE NEGATIVE (NEGATIVE); NITRITE, URINE NEGATIVE (NEGATIVE); UGLUCOSE TRACE (NEGATIVE)
[2020-09-13 05:14] LABS: ALBUMIN 1.4 g/dL (3.4-5.0); CARBON DIOXIDE 26.8 mmol/L (21-32); POTASSIUM 4.8 mmol/L (3.5-5.1); TOTAL BILIRUBIN 0.7 mg/dL (0.0-1.0)
[2020-09-13 05:26] LABS: CREATININE 6.7 mg/dL (0.6-1.3)
[2020-09-13] MEDS: PROPOFOL 1000 MG/100 ML PREMIX 100 ML IV PRN ×2 (05:50→18:48)
[2020-09-13] MEDS: BLOOD GLUCOSE MONITORING 1 DEV DEV FS SCH ×4 (06:32→21:00)
[2020-09-13] MEDS: INSULIN LISPRO SLIDING SCALE 100 UNITS/ML VIAL SUBQ PRN ×2 (06:33→11:54)
[2020-09-13 06:40] LABS: BASOPHILS % (AUTO) 0.2 % (0.0-2.0); HEMATOCRIT 37.5 % (36-52); HEMOGLOBIN 12.3 g/dL (12.0-18.0); LYMPHOCYTES # (AUTO) 0.2 K/uL (2.0-11.5); LYMPHOCYTES % (AUTO) 2.6 % (20.5-51.1); MEAN CORPUSCULAR HEMOGLOBIN 29 pg (27-31); MEAN CORPUSCULAR HGB CONC 33 g/dL (33-37); MONOCYTES # (AUTO) 0.8 K/uL (0.8-1.0); MONOCYTES % (AUTO) 8.8 % (1.7-9.3); NEUTROPHILS # (AUTO) 7.9 K/uL (1.8-7.7); NEUTROPHILS % (AUTO) 88.4 % (42.2-75.2); PLATELET COUNT (AUTO) 130 K/uL (140-450)
--- NOTE | 2020-09-13 07:31 | NUR ---
ENDORSED TO DAY SHIFT RN FOR CONTINUITY OF CARE
[2020-09-13] MEDS: APIXABAN 2.5 MG TAB PO SCH ×2 (09:00→21:54)
[2020-09-13] MEDS: DOCUSATE 100 MG/10 ML UDC GT SCH (09:00)
[2020-09-13] MEDS: DEXAMETHASONE 4 MG/ML VIAL IVP SCH (09:00)
[2020-09-13] MEDS: INSULIN LANTUS 100 UNITS/ML 10 ML VIAL SUBQ SCH (09:00)
--- NOTE | 2020-09-13 10:30 | NUR ---
CHECKED BLOOD GLUCOSE RECEIVED 188, AND CHECKED OGT RECEIVED 50 ML. ADMINISTERED SCHEDULED MEDS VIA OGT AND IVP, FLUSHED BEFORE AND AFTER MEDS. PROVIDED HYGIENE CARE, ORAL CARE, SUCTIONING, BERGMAN CARE, AND CHG BATH, PATIENT TOLERATED FAIR. WITH ASSIST, REPOSITIONED PATIENT, AND OFFLOADED PRESSURE WITH PILLOWS. RESPIRATION EVEN AND UNLABORED ON ETT TO VENT, FIO2 AT 85%, RATE 20, PEEP 8, SPO2 99%. STARTED PATIENT ON OGT FEEDING AT 25ML/HR AT THIS TIME. SAFETY MEASURES IN PLACE. BED IN LOW POSITION, HOB ELEVATED 35 DEGREE, AND BED LOCKED.
--- NOTE | 2020-09-13 11:10 | NUR ---
DR LING IS ROUNDING ON PATIENT AND INFORMED THAT PATIENT'S BP IS HIGH, DR LING WAS AWARE. RECEIVED VERBAL ORDER FOR CATAPRES 0.1 MG PRN Q6H FOR HTN SBP ABOVE 160 VIA OGT, REPEATED AND CONFIRMED ORDER WITH MD, WILL INPUT ACCORDINGLY.
--- NOTE | 2020-09-13 11:15 | NUR ---
NOTIFIED BANG TERRITORY REPRESENTATIVE THAT PATIENT HAS ORDER FOR HD TODAY, BANG PARKS WAS AWARE.
[2020-09-13] MEDS: CLONIDINE HYDROCHLORIDE 0.1 MG TAB NG PRN (11:28)
--- NOTE | 2020-09-13 12:05 | NUR ---
CHECKED 1130 BLOOD SUGAR, WAS 191. 2 UNITS GIVEN FOR COVERAGE PER SLIDING SCALE. NO SIGN OF HYPOGLYCEMIA. WILL CONTINUE TO MONITOR.
--- NOTE | 2020-09-13 13:10 | NUR ---
DR PETERSON IS ROUNDING ON PATIENT.
--- NOTE | 2020-09-13 13:15 | NUR ---
RECEIVED A CALL FROM PATIENT'S DAUGHTER LOY, UPDATED LOY WITH PATIENT'S CURRENT CONDITION, AND ANSWERED ALL LOY'S QUESTIONS, LOY WAS AWARE.
--- NOTE | 2020-09-13 13:27 | NUR ---
[facility] IS BY BEDSIDE AND ABOUT TO START HD FOR PATIENT. WILL HOLD 1300 DOSE ZOSYN DUE TO HD NOW.
--- NOTE | 2020-09-13 13:33 | NUR ---
DR KIM HUDSON IS ROUNDING ON PATIENT.
--- NOTE | 2020-09-13 14:47 | NUR ---
10,000 UNIT HEPARIN PROVIDED TO [facility] SUPERVISOR COLD ROLLING FOR PORTS FLUSH. PATIENT IS STILL IN DIALYSIS, VITAL SIGNS MONITOR CLOSELY.
--- NOTE | 2020-09-13 16:30 | NUR ---
BLOOD GLUCOSE CHECKED 149, NO COVERAGE NEEDED.
--- NOTE | 2020-09-13 16:44 | NUR ---
URINE SAMPLE COLLECTED VIA BERGMAN PORT AND DELIVERED TO LAB.
--- NOTE | 2020-09-13 17:08 | NUR ---
PATIENT HAS ONE MODERATE BROWN SOFT BM, PROVIDED HYGIENE CARE, CHANGED ALL DIRTY. REPOSITIONED PATIENT, USED PILLOWS TO OFFLOAD PRESSURE, HEART-SHAPED OPTIFOAM USED IN SACRAL AREA. PROVIDED ORAL CARE AND SUCTIONING, PATIENT TOLERATED FAIR, FLACC 0. RESPIRATION EVEN AND SHALLOW ON ETT TO VENT, AC/PC FIO2 75%, RATE 26, PEEP 10, SPO2 AT 1400% AT THIS TIME. PULSE 74, BP 148/72. SAFETY MEASURES IN PLACE. HOB ELEVATED 35 DEGREE, BED IN LOW POSITION AND BED LOCKED.
--- NOTE | 2020-09-13 19:57 | NUR ---
ENDORSED PATIENT TO SCREEDMAN NURSE ONYE FOR CONTINUITY OF CARE, SAFETY MEASURES IN PLACE.
--- NOTE | 2020-09-13 20:38 | NUR ---
RECEIVED PATIENT FROM AM SHIFT. PATIENT WAS SEEN AND ASSESSED. FOUND PATIENT IN SUPINE POSITIONED. PATIENT IS INTUBATED WITH ETT SIZE 8.0 AND SECURED WITH ANCHOR-FAST @ 24cm. PATIENT IS ON VENT SETTINGS: AC/PC 20 RR 26, PEEP 10, FiO2 75% WITH SPO2 OF 99%. AMBU BAG AT BEDSIDE. VENT IS PLUGGED IN RED OUTLET. ALARMS SET AND AUDIBLE TO ENVIRONMENT. SUCTIONED SMALL AMOUNT OF PINK TINGE SECRETIONS FROM ETT. AIRWAY IS PATENT. AUSCULTATION REVEALS BILATERAL COARSE BREATH SOUNDS ON BOTH UPPER AND LOWER LOBES. PATIENT IS IN NO APPARENT RESPIRATORY DISTRESS AT THIS TIME. WILL CONTINUE TO MONITOR PATIENT.
[2020-09-13] MEDS: FAMOTIDINE 20 MG/2 ML VIAL IV SCH (21:25)
[2020-09-14] VITALS (27 sets, daily range): BP systolic 131–219; BP diastolic 68–93
--- NOTE | 2020-09-14 00:29 | NUR ---
TITRATED FiO2 TO 65%. SPO2 98%. PT TOLERATING WELL. RN NOTIFIED. WILL CONTINUE TO MONITOR.
[2020-09-14] MEDS: NACL 0.9% 1,000 ML IV SCH ×2 (03:55→17:15)
--- NOTE | 2020-09-14 04:19 | NUR ---
TITRATED FiO2 TO 60%. SPO2 95%. PT TOLERATING WELL. RN NOTIFIED. WILL CONTINUE TO MONITOR.
[2020-09-14] MEDS: PIPERACILLIN/TAZOBACTAM 2.25 GM in DEXTROSE 5% 50 ML IV SCH ×3 (05:00→21:00)
[2020-09-14 05:22] LABS: BASOPHILS % (AUTO) 0.2 % (0.0-2.0); EOSINOPHILS # (AUTO) 0.1 K/uL (0-0.4); EOSINOPHILS % (AUTO) 0.6 % (0.0-4.0); HEMATOCRIT 32.5 % (36-52); HEMOGLOBIN 10.7 g/dL (12.0-18.0); LYMPHOCYTES # (AUTO) 0.4 K/uL (2.0-11.5); LYMPHOCYTES % (AUTO) 3.2 % (20.5-51.1); MEAN CORPUSCULAR HEMOGLOBIN 29 pg (27-31); MEAN CORPUSCULAR HGB CONC 33 g/dL (33-37); MEAN CORPUSCULAR VOLUME 86.8 fL (80-94); MONOCYTES # (AUTO) 0.9 K/uL (0.8-1.0); MONOCYTES % (AUTO) 7.7 % (1.7-9.3); NEUTROPHILS % (AUTO) 88.3 % (42.2-75.2); PLATELET COUNT (AUTO) 163 K/uL (140-450); RED BLOOD CELL COUNT(AUTO) 3.75 MIL/uL (4.20-6.10); WHITE BLOOD COUNT (AUTO) 11.4 K/uL (4.8-10.8)
[2020-09-14 05:32] LABS: CARBON DIOXIDE 25.9 mmol/L (21-32); POTASSIUM 4.9 mmol/L (3.5-5.1)
[2020-09-14 06:13] LABS: CREATININE 5.9 mg/dL (0.6-1.3)
--- NOTE | 2020-09-14 06:13 | NUR ---
ABNORMAL LAB RESULTS REPORTED TO PRIMARY RN AT THIS TIME FOR FOLLOW UP WITH MD.
[2020-09-14] MEDS ORDERED: hydrALAZINE 20 MG/ML VIAL IVP PRN (07:00)
[2020-09-14] MEDS: INSULIN LISPRO SLIDING SCALE 100 UNITS/ML VIAL SUBQ PRN ×3 (08:14→17:10)
[2020-09-14 08:19] LABS: HEPATITIS A ANTIBODY IGM Negative (Negative); HEPATITIS B CORE AB TOTAL Negative (Negative); HEPATITIS B SURFACE ANTIBODY Non Reactive (.); HEPATITIS B SURFACE ANTIGEN Negative (Negative)
[2020-09-14] MEDS: BLOOD GLUCOSE MONITORING 1 DEV DEV FS SCH ×4 (08:19→21:00)
[2020-09-14] MEDS: DOCUSATE 100 MG/10 ML UDC GT SCH (09:11)
[2020-09-14] MEDS: DEXAMETHASONE 4 MG/ML VIAL IVP SCH (09:12)
[2020-09-14] MEDS: APIXABAN 2.5 MG TAB PO SCH ×2 (09:22→21:00)
[2020-09-14] MEDS: INSULIN LANTUS 100 UNITS/ML 10 ML VIAL SUBQ SCH (10:09)
--- NOTE | 2020-09-14 10:14 | NUR ---
ADMINISTERED SCHEDULED MEDS PER MD ORDERS, MED EDUCATION PROVIDED, REINFORCEMENT NEEDED. OG TUBE RESIDUAL 5ML, FLUSHED BEFORE AND AFTER MEDS. MORNING HYGIENE PROVIDED: ORAL CARE, CATHETER CARE, CHG BATH, CHANGED ALL DIRTY LINEN. PT REPOSITIONED AND OFFLOADED PRESSURE WITH PILLOWS. BIOINFORMATICS DEVELOPER IN PLACE. SAFETY MEASURES IN PLACE.
[2020-09-14] MEDS: LABETALOL 100 MG/20 ML VIAL IVP PRN (10:31)
--- NOTE | 2020-09-14 10:31 | NUR ---
BP 207/80 PULSE 105 SPO2 99%, ADMINISTERED PRN LABETAOL 10MG/2ML PER MD ORDER VIA IVP, WILL REASSESS AND MONITOR BP AND PULSE.
--- NOTE | 2020-09-14 11:29 | NUR ---
DR LING IS ROUNDING ON PATIENT AND ORDER TO TITRATE SEDATION SLOWLY TO SEE HOW PATIENT WILL TOLERATE.
--- NOTE | 2020-09-14 11:45 | NUR ---
CHECKED BLOOD SUGAR, 331, 8 UNITS GIVEN FOR COVERAGE, NO S/S OF HYPOGLYCEMIA, WILL CONTINUE TO MONITOR.
--- NOTE | 2020-09-14 13:14 | NUR ---
RECEIVED A CALL FROM LOY, UPDATED LOY WITH PATIENT'S CURRENT CONDITION, LOY WAS AWARE.
--- NOTE | 2020-09-14 13:44 | NUR ---
09/14/20 RD FOLLOW UP COMPLETED. PLEASE REFER TO NUTRITION ASSESSMENT UNDER CARE ACTIVITY FOR ESTIMATED NUTRITIONAL NEEDS. DUE TO HD, RECOMMEND CHANGING TF TO NEPRO, TOTAL VOLUME 960 ML/DAY. IF FEEDING CONTINUOUS, CONSIDER NEPRO @ 40 ML/HR X 24 HRS, IF TF HELD OFTEN, CONSIDER NEPRO @ GOAL RATE OF 120 ML/HR X 8 HRS. THIS WILL PROVIDE 1728 KCALS AND 78 GM PRO/DAY TO MEET 100% ESTIMATED ENERGY AND 93% ESTIMATED PROTEIN NEEDS PER DAY RD TO FOLLOW-UP IN 2-3 DAYS PATIENT IS HIGH RISK. BRADY GRAF RD
--- NOTE | 2020-09-14 14:15 | NUR ---
CLEANED PATIENT, PATIENT HAD MODERATE SOFT LARGE BM, PROVIDED ORAL HYGIENE, BERGMAN CARE PROVIDED, CHG BATH, INCONTINENCE CARE, CHANGED LINEN, REPOSITIONED, OFF LOADED PRESSURE POINTS, NO S/S OF DISTRESS, FLACC 0, RASS -3, PULSE 84, SPO2 94, BP 195/86. WILL CONTINUE TO MONITOR
[2020-09-14] MEDS: fentaNYL citrate - 50mL vial 2.5 MG in NACL 0.9% 200 ML IV PRN (15:55)
--- NOTE | 2020-09-14 16:38 | NUR ---
PT REMAINS ON DOCUMENTED VENT SETTINGS. PT NOT IN ANY DISTRESS AT THIS TIME. ETT REMAINS SECURE WITH PATENT AIRWAY. VENT ALARMS ON AND FUNCTIONING.
--- NOTE | 2020-09-14 17:23 | NUR ---
ISAURA MCKNIGHT IS ROUNDING ON PATIENT. AND SAID PATIENT WILL BE DIALYSIS TOMORROW, AND HE WILL INPUT ORDER.
[2020-09-14] MEDS: FAMOTIDINE 20 MG/2 ML VIAL IV SCH (21:00)
[2020-09-15] VITALS (25 sets, daily range): BP systolic 107–211; BP diastolic 57–101
[2020-09-15] MEDS: INSULIN LISPRO SLIDING SCALE 100 UNITS/ML VIAL SUBQ PRN ×4 (01:33→17:40)
[2020-09-15] MEDS: PROPOFOL 1000 MG/100 ML PREMIX 100 ML IV PRN ×2 (04:14→20:53)
[2020-09-15] MEDS: CLONIDINE HYDROCHLORIDE 0.1 MG TAB NG PRN (04:24)
[2020-09-15] MEDS: PIPERACILLIN/TAZOBACTAM 2.25 GM in DEXTROSE 5% 50 ML IV SCH ×3 (05:09→20:47)
--- NOTE | 2020-09-15 07:30 | NUR ---
RECEIVED REPORT FROM MORNING NURSE FOR CONTINUITY OF CARE, ASSESSED PATIENT, PATIENT IS LYING ON LEFT LATERAL POSITION COMFORTABLY, SEDATED TO RASS -3, FLACC 0, LUNG SOUNDS DIMINISHED ON ETT TO VENT, A/C PC FIO2 40%, RATE 26, PEEP 8, SPO2 AT 97%, BP ELEVATED 181/97 AFTER CATAPRES, WILL CONTINUE TO MONITOR BP CLOSELY. STEFAN PICC LINE DOUBLE LUMEN RUNNING PROPOFOL 10 MCG/KG/MIN, FENTANYL 1 MCG/KG/HR, AND IVF NS 75 ML/HR. SKIM WARM TO TOUCH, SACRAL DTI COVERED WITH HEART SHAPE OPTIFOAM, PURPLE 2ND TOE ON R FOOT NOTED, WILL TAKE WOUND PHOTO AND NOTIFY MD DURING ROUND, APPLIED BILATERAL HEEL PROTECTORS. OGT IN PLACE, RUNNING VITAL AF 1.2 AT 40 ML/HR. ABDOMEN ROUND, SOFT, NON TENDER. PATIENT IS INCONTINENT, BERGMAN IN PLACE, RUNNING WITH GRAVITY, YELLOW SEDIMENT URINE IN BAG NOTED. ADULT CARE MANAGER IN PLACE. BED IN LOW POSITION, HOB ELEVATED 35 DEGREE, AND BED LOCKED.
[2020-09-15 07:37] LABS: ANION GAP 16.4 (8-16); CARBON DIOXIDE 24.7 mmol/L (21-32); POTASSIUM 5.1 mmol/L (3.5-5.1)
--- NOTE | 2020-09-15 07:39 | NUR ---
NOTIFIED BANG STRETCHER OPERATOR THAT PATIENT HAS HD ORDER FOR TODAY, BANG PARKS WAS AWARE.
[2020-09-15] MEDS: BLOOD GLUCOSE MONITORING 1 DEV DEV FS SCH ×4 (08:04→21:00)
[2020-09-15] MEDS: DOCUSATE 100 MG/10 ML UDC GT SCH (08:05)
[2020-09-15] MEDS: APIXABAN 2.5 MG TAB PO SCH ×2 (08:06→20:49)
--- NOTE | 2020-09-15 08:15 | NUR ---
CHECKED 0730 GLUCOSE RECEIVED 226, OGT RESIDUAL RECEIVED 40CC, ADMINISTERED AM SCHEDULED MEDS PER MD ORDER, FLUSHED BEFORE AND AFTER MEDS, 4 UNIT HUMALOG COVERED. PROVIDED AM HYGIENE CARE, ORAL CARE,SUCTIONING, BERGMAN CARE. WITH ASSIST, REPOSITIONED PATIENT AND OFFLOADED PRESSURE WITH PILLOWS, PATIENT TOLERATED FAIR, FLACC 0. RESPIRATION EVEN AND SHALLOW, [place] ON ETT TO VENT AC/PC FIO2 40%, RATE 26, PEEP 8, FIO2 AT 96%. BP REMAINS HIGH AFTER CATEPRES, 196/96, AWAITING FOR HD, WILL CLOSELY MONITOR BP. OGT FEEDING RESUMED, CONTINUE RUNNING AT 40 ML/HR. SAFETY MEASURES IN PLACE. HOB ELEVATED 35 DEGREE, BED IN LOW POSITION AND BED LOCKED.
[2020-09-15 08:29] LABS: CREATININE 6.3 mg/dL (0.6-1.3)
--- NOTE | 2020-09-15 08:46 | NUR ---
RECEIVED CRITICAL LAB FOR BUN 141 AND CREATININE 6.3. NOT REPORTED TO MD. DIALYSIS NURSE NOTIFIED, WAITING FOR DIALYSIS NURSE. DIALYSIS ORDERED FOR TODAY.
[2020-09-15] MEDS: INSULIN LANTUS 100 UNITS/ML 10 ML VIAL SUBQ SCH (09:00)
[2020-09-15] MEDS: LABETALOL 100 MG/20 ML VIAL IVP PRN (10:35)
--- NOTE | 2020-09-15 10:36 | NUR ---
BLOOD GLUCOSE 280,ADMINISTERED SCHEDULE LANTUS. BP ELEVATED 205/98 PULSE 89, ADMINISTERED PRN LABETALOL, WILL MONITOR BP AND PULSE CLOSELY.
--- NOTE | 2020-09-15 10:50 | NUR ---
DR LING IS ROUNDING ON PATIENT. NOTIFIED OF TOES CONDITION AND ELEVATED BP, DR LING WAS AWARE AND SAID WILL ADD MED FOR BP.
--- NOTE | 2020-09-15 11:55 | NUR ---
CHECKED BLOOD SUGAR, 245, 4 UNITS GIVEN COVERAGE PER MD SLIDING SCALE.
[2020-09-15 12:02] LABS: BASOPHILS % (AUTO) 0.2 % (0.0-2.0); EOSINOPHILS % (AUTO) 0.3 % (0.0-4.0); HEMATOCRIT 33.7 % (36-52); HEMOGLOBIN 10.9 g/dL (12.0-18.0); LYMPHOCYTES # (AUTO) 0.3 K/uL (2.0-11.5); MEAN CORPUSCULAR HEMOGLOBIN 28 pg (27-31); MEAN CORPUSCULAR HGB CONC 32 g/dL (33-37); MEAN CORPUSCULAR VOLUME 86.3 fL (80-94); MONOCYTES % (AUTO) 7.6 % (1.7-9.3); NEUTROPHILS # (AUTO) 12.3 K/uL (1.8-7.7); NEUTROPHILS % (AUTO) 89.9 % (42.2-75.2); PLATELET COUNT (AUTO) 275 K/uL (140-450); RED CELL DISTRIBUTION WIDTH 13.9 % (11.6-13.7); WHITE BLOOD COUNT (AUTO) 13.7 K/uL (4.8-10.8)
--- NOTE | 2020-09-15 13:03 | NUR ---
RECEIVED A CALL FROM LOY, UPDATED LOY WITH PATIENT'S CURRENT CONDITION, LYO WAS AWARE.
[2020-09-15] MEDS: CLONIDINE HYDROCHLORIDE 0.1 MG TAB NG SCH ×2 (13:25→20:48)
--- NOTE | 2020-09-15 13:33 | NUR ---
DR ISAURA PETERSON IS ROUNDING ON PATIENT AND WAS AWARE OF ELEVATED BP, ALSO INFORMED DR PETERSON THAT PER DAUGHTER LOY, PATIENT IS HTN AND TAKE LOSARTEN AT HOME. DR PETERSON WAS AWARE. ORDERED TO CHANGED LABETALOL TO 20 MG IVP Q4H PRN , AND HYDRALAZINE 20 MG IVP Q4H PRN FOR SBP < 160, REPEATED AND CONFIRMED ORDERS WITH DR PETERSON, WILL INPUT ACCORDINGLY.
[2020-09-15] MEDS ORDERED: LABETALOL 100 MG/20 ML VIAL IVP PRN (13:40)
--- NOTE | 2020-09-15 13:43 | NUR ---
GIVE CATAPRES PER MD ORDER FOR HYPERTENSION
--- NOTE | 2020-09-15 15:20 | NUR ---
PATIENT IS DESATURATING TO 84% DURING DIALYSIS, INCREASED FIO2 TO 90%, SPO2 AT 90% AT THIS TIME. NOTIFIED RT, WILL MONITOR VITAL SIGNS CLOSELY.
--- NOTE | 2020-09-15 16:55 | NUR ---
CHECKED BLOOD SUGAR, 203, COVERED 4 UNITS PER MD SLIDING SCALE, NO S/S OF HYPOGLYCEMIA, WILL CONTINUE TO MONITOR.
--- NOTE | 2020-09-15 19:22 | NUR ---
ENDORSED PATIENT TO YARD SUPERVISOR COTTON GIN NURSE ONYE FOR CONTINUITY OF CARE, PATIENT IS LYING ON BED COMFORTABLY, BP 144/88 PULSE 102, SPO2 AT 100% ON FIO2 60%. SAFETY MEASURES IN PLACE.
[2020-09-15] MEDS: FAMOTIDINE 20 MG/2 ML VIAL IV SCH (20:46)
[2020-09-15] MEDS: LABETALOL 200 MG TAB NG SCH (20:48)
--- NOTE | 2020-09-15 20:52 | NUR ---
RECEIVED PATIENT FROM AM SHIFT. PATIENT WAS SEEN AND ASSESSED. FOUND PATIENT IN SUPINE POSITIONED. PATIENT IS INTUBATED WITH ETT SIZE 8.0 AND SECURED WITH ANCHOR-FAST @ 24cm. PATIENT IS ON VENT SETTINGS: AC/PC 20 RR 26, PEEP 8, FiO2 70% WITH SPO2 OF 100%. AMBU BAG AT BEDSIDE. VENT IS PLUGGED IN RED OUTLET. ALARMS SET AND AUDIBLE TO ENVIRONMENT. SUCTIONED SMALL AMOUNT OF PINK TINGE SECRETIONS FROM ETT. AIRWAY IS PATENT. AUSCULTATION REVEALS BILATERAL COARSE BREATH SOUNDS ON BOTH UPPER AND LOWER LOBES. PATIENT IS IN NO APPARENT RESPIRATORY DISTRESS AT THIS TIME. WILL CONTINUE TO MONITOR PATIENT.
--- NOTE | 2020-09-15 21:04 | NUR ---
TITRATED FiO2 FROM 70% TO 60%. SPO2 95%. PT TOLERATING WELL. RN NOTIFIED. WILL CONTINUE TO MONITOR.
[2020-09-15] MEDS: ACETAMINOPHEN 325 MG TAB PO PRN (23:18)
[2020-09-15] MEDS: fentaNYL citrate - 50mL vial 2.5 MG in NACL 0.9% 200 ML IV PRN (23:58)
[2020-09-16] VITALS (18 sets, daily range): BP systolic 79–145; BP diastolic 42–76
--- NOTE | 2020-09-16 03:42 | NUR ---
TITRATED FiO2 FROM 60% TO 50%. SPO2 95%. PT TOLERATING WELL. RN NOTIFIED. WILL CONTINUE TO MONITOR.
[2020-09-16] MEDS: fentaNYL citrate - 50mL vial 2.5 MG in NACL 0.9% 200 ML IV PRN (04:00)
[2020-09-16] MEDS: PIPERACILLIN/TAZOBACTAM 2.25 GM in DEXTROSE 5% 50 ML IV SCH ×3 (05:00→21:25)
[2020-09-16] MEDS: CLONIDINE HYDROCHLORIDE 0.1 MG TAB NG SCH ×2 (05:00→21:26)
[2020-09-16 06:36] LABS: BASOPHILS % (AUTO) 0.3 % (0.0-2.0); EOSINOPHILS # (AUTO) 0.1 K/uL (0-0.4); HEMATOCRIT 29.7 % (36-52); HEMOGLOBIN 9.7 g/dL (12.0-18.0); LYMPHOCYTES # (AUTO) 0.9 K/uL (2.0-11.5); MEAN CORPUSCULAR HEMOGLOBIN 29 pg (27-31); MEAN CORPUSCULAR HGB CONC 33 g/dL (33-37); MEAN CORPUSCULAR VOLUME 88.2 fL (80-94); MONOCYTES % (AUTO) 9.3 % (1.7-9.3); NEUTROPHILS # (AUTO) 8.8 K/uL (1.8-7.7); NEUTROPHILS % (AUTO) 81.4 % (42.2-75.2); PLATELET COUNT (AUTO) 265 K/uL (140-450); RED BLOOD CELL COUNT(AUTO) 3.37 MIL/uL (4.20-6.10); RED CELL DISTRIBUTION WIDTH 13.9 % (11.6-13.7); WHITE BLOOD COUNT (AUTO) 10.8 K/uL (4.8-10.8)
[2020-09-16 07:25] LABS: ANION GAP 13.8 (8-16); CARBON DIOXIDE 25.8 mmol/L (21-32); POTASSIUM 5.6 mmol/L (3.5-5.1)
[2020-09-16] MEDS: BLOOD GLUCOSE MONITORING 1 DEV DEV FS SCH ×3 (07:30→21:24)
[2020-09-16 07:53] LABS: CREATININE 6.6 mg/dL (0.6-1.3)
[2020-09-16] MEDS: DOCUSATE 100 MG/10 ML UDC GT SCH (09:00)
[2020-09-16] MEDS: LABETALOL 200 MG TAB NG SCH ×2 (09:00→21:28)
[2020-09-16] MEDS: APIXABAN 2.5 MG TAB PO SCH ×2 (11:28→21:27)
[2020-09-16] MEDS: INSULIN LISPRO SLIDING SCALE 100 UNITS/ML VIAL SUBQ PRN (11:39)
[2020-09-16] MEDS: INSULIN LANTUS 100 UNITS/ML 10 ML VIAL SUBQ SCH (11:40)
--- NOTE | 2020-09-16 13:35 | NUR ---
WOUND CARE RE- EVALUATION NOTE: PT. WITH CHANGE OF SKIN CONDITION TO SACRALCOCCYX AND INNER BUTTOCKS AND TOES. COVID RELATED SKIN FAILURE. PT. IS SEDATED,INTUBATED WITH OGT, LIPS DRY AND CLEAN.SKIN ASSESSMENT DONE, PHOTO UNABLE TO OBTAINED DUE TO EASILY DESAT. DURING TURNING. POC DISCUSSED WITH PRIMARY RN. COMORBIDITIES RELATED TO DELAY WOUND HEALING AND FURTHER SKIN BREAKS: BOWEL INCONTINENCE, INFECTION, HYPOXEMIC DECREASE TISSUE PERFUSSION, TISSUE ISCHEMA, DECREASE MOBILITY AND FUNCTIONAL ABILITIES, AND HOB ELEVATED THE MAJORITY OF TIMES DUE TO MEDICAL REASONS. COVID RELATED SKIN FAILURE DUE TO TISSUE LESS TOLERATE TO PRESSURE, SHEARING AND POSSIBLE ASSOCIATED WITH MICROVASCULAR INJURY. INTEGUMENTARY: -UPPER ARMS MULTIPLE ECCHYMOSIS, SKIN INTACT -INCONTINENT ASSOCIATE DERMATITIS (IAD) TO: INNER THIGHS AND SCROTAL AREA, SKIN REDNESS -COVID RELATED SKIN FAILURE DTI TO SACROCOCCYX AND INNER BUTTOCKS, IRREGULAR SHAPE, 5X3CM, SURROUNDING REDNESS INDICATED FURTHER DAMAGE -COVID TOES X3 DIGITS (BIG TOE, 2ND AND 3RD TOES)TO RIGHT FOOT 100% MAROON COLOR WITH SKIN INTACT -BILATERAL HEELS BLANCHABLE REDNESS, SKIN INTACT RECOMMENDATIONS: -APPLY HYDRAGUARD TO INNER THIGHS AND SCROTAL AREAS BID AND PRN IF SOILING -CLEANSE SACROCOCCYX AND INNER BUTTOCKS WOUNDS WITH NS. PAT DRY, APPLY FOAM DRESSING QD AND PRN IF SOILING -APPLY HEEL PROTECTORS TO BOTH HEELS AT ALL TIMES -OFFLOAD BILATERAL HEELS BY PLACING PILLOWS UNDER CALVES UNLESS OTHERWISE CONTRAINDICATED -PRESSURE REDISTRIBUTION SURFACE THERAPY -TURN AND REPOSITION Q2H, OFFLOAD SACRALCOCCYX AND BUTTOCKS BY TURNING RIGHT AND LEFT -CONTINUE TO FOLLOW RD RECOMMENDATIONS ALL ABOVE RECOMMENDATIONS DISCUSSED WITH PRIMARY RN. PLEASE CONTACT WOUND CARE NURSE FOR ANY QUESTION AND CHANGE OF WOUND CONDITION
--- NOTE | 2020-09-16 15:31 | NUR ---
FIO2 INCREASED TO 50% DUE TO LOW SPO2 86%. PT NOT IN ANY DISTRESS AT THIS TIME. VENT ALARMS ON AND FUNCTIONING. ETT IS SECURE WITH A PATENT AIRWAY.
[2020-09-16] MEDS ORDERED: SODIUM ZIRCONIUM CYCLOSILICATE 10 GM POWD.PACK NG SCH (16:00)
--- NOTE | 2020-09-16 19:30 | NUR ---
ASSUMED CARE OF PT.INITIAL ASSESSMENT COMPLETED.SR ON MONITOR.W/ PITTING EDEMA +1 TO BOTH HANDS AND FEET.ETT TO VENT AC/PC FIO2 50% PC 20 RATE 26 PEEP 7.W/ STEFAN PICC LINE INTACT,GOOD BLOOD RETURN TO BOTH PORTS INFUSING FENTANYL AT 0.5MCG/KG/HR.W/SALINE LOCK TO LT F/A G18.W/SHAYY CATHETER TO RT IJ INTACT. W/ OGT,NO RESIDUAL NOTED. ON VITAL AF 1.2 AT 50ML/HR WITH WATER FLUSH 100ML Q8HRS.W/BERGMAN CATHETER TO BSD DRAINING ADEQUATE AMT OF YELLOW URINE W/SEDIMENTS.W/PURPLISH DISCOLORATION TO BUTTOCKS.FOAM DRESSING ALREADY IN PLACE.FLACC 0
--- NOTE | 2020-09-16 19:43 | NUR ---
DIALYSIS NURSE AT BEDSIDE; CATHETER NOT WORKING; HEAVENLY DIALYSIS NURSE SAID HE WILL CALL NEPHRO TO INFORM HIM
[2020-09-16] MEDS: ACETAMINOPHEN 325 MG TAB PO PRN (20:00)
--- NOTE | 2020-09-16 20:00 | NUR ---
ORAL CARE USING VAP KIT RENDERED.REPOSITIONED.FLACC 0
--- NOTE | 2020-09-16 20:30 | NUR ---
PTS TEMP 100.8; TYLENOL GIVEN.CONTINUOUS COOLING MEASURES RENDERED.WILL CLOSELY MONITOR PT
[2020-09-16] MEDS: FAMOTIDINE 20 MG/2 ML VIAL IV SCH (21:25)
[2020-09-17] VITALS (30 sets, daily range): BP systolic 91–162; BP diastolic 50–86
--- NOTE | 2020-09-17 | NUR ---
ORAL CARE DONE.TEMP 100; CONTINUOUS COOLING MEASURES RENDERED.REPOSITIONED.
[2020-09-17] MEDS: HYDRAGUARD CREAM TP SCH (01:13)
--- NOTE | 2020-09-17 03:50 | NUR ---
MORNING CARE DONE.ALL LINENS CHANGED.REPOSITIONED.FLACC 0
[2020-09-17] MEDS: PIPERACILLIN/TAZOBACTAM 2.25 GM in DEXTROSE 5% 50 ML IV SCH ×3 (04:59→21:32)
[2020-09-17] MEDS: BLOOD GLUCOSE MONITORING 1 DEV DEV FS SCH ×4 (06:44→21:24)
[2020-09-17] MEDS: INSULIN LISPRO SLIDING SCALE 100 UNITS/ML VIAL SUBQ PRN ×2 (06:45→21:22)
--- NOTE | 2020-09-17 06:45 | NUR ---
PER NURSING SCALES INSPECTOR, PT WILL GO TO OPERATING ROOM TODAY FOR PLACEMENT OF HEMODIALYSIS CATHETER.PHONE CALL TO PTS DAUGHTER LOY, CONSENT OBTAINED, WITNESSED BY RN ELISHA.
--- NOTE | 2020-09-17 07:30 | NUR ---
report taken patient to surgery consent ready on chart for MD am assessment completed
[2020-09-17 07:48] LABS: ALBUMIN 1.5 g/dL (3.4-5.0); ANION GAP 18.6 (8-16); CARBON DIOXIDE 22.3 mmol/L (21-32); POTASSIUM 5.9 mmol/L (3.5-5.1); TOTAL BILIRUBIN 0.5 mg/dL (0.0-1.0)
[2020-09-17 08:00] LABS: CREATININE 7.1 mg/dL (0.6-1.3)
[2020-09-17] MEDS ORDERED: SODIUM ZIRCONIUM CYCLOSILICATE 10 GM POWD.PACK PO ONE (08:10)
[2020-09-17] MEDS ORDERED: SODIUM ZIRCONIUM CYCLOSILICATE 10 GM POWD.PACK PO SCH (08:30)
[2020-09-17] MEDS: INSULIN LANTUS 100 UNITS/ML 10 ML VIAL SUBQ SCH (09:00)
[2020-09-17] MEDS: CLONIDINE HYDROCHLORIDE 0.1 MG TAB NG SCH ×3 (09:00→22:00)
[2020-09-17] MEDS: LABETALOL 200 MG TAB NG SCH ×2 (09:00→21:00)
[2020-09-17] MEDS: APIXABAN 2.5 MG TAB PO SCH ×2 (09:00→21:19)
[2020-09-17] MEDS: DOCUSATE 100 MG/10 ML UDC GT SCH (09:00)
--- NOTE | 2020-09-17 09:00 | NUR ---
Patient to surgery phone consent for anesthesia ,IV SPREADSHEET COMPLETED BEFORE TRANSFER OF CARE
[2020-09-17] MEDS ORDERED: ROCURONIUM 50 MG/5 ML VIAL IV ONE (09:25)
[2020-09-17] MEDS ORDERED: SEVOFLURANE 250 ML BTL INH ONE (09:25)
--- NOTE | 2020-09-17 10:30 | NUR ---
PATIENT BACK FROM PROCEDURE RECOVERY DONE AND CHARTED AT BEDSIDE AND COMPLETED AT 1130 UNEVENTFUL 0900 MEDICATIONS DELAYED DUE TO PROCEDURE NO ACUTE DISTRESS NOTED
[2020-09-17 12:27] LABS: BASOPHILS # (AUTO) 0.1 K/uL (0.00-0.22); BASOPHILS % (AUTO) 0.3 % (0.0-2.0); HEMOGLOBIN 9.9 g/dL (12.0-18.0); LYMPHOCYTES # (AUTO) 0.3 K/uL (2.0-11.5); LYMPHOCYTES % (AUTO) 1.5 % (20.5-51.1); MEAN CORPUSCULAR HEMOGLOBIN 28 pg (27-31); MEAN CORPUSCULAR HGB CONC 32 g/dL (33-37); MEAN CORPUSCULAR VOLUME 87.6 fL (80-94); MONOCYTES # (AUTO) 0.9 K/uL (0.8-1.0); MONOCYTES % (AUTO) 4.1 % (1.7-9.3); NEUTROPHILS # (AUTO) 20.1 K/uL (1.8-7.7); NEUTROPHILS % (AUTO) 94.1 % (42.2-75.2); PLATELET COUNT (AUTO) 360 K/uL (140-450); RED BLOOD CELL COUNT(AUTO) 3.54 MIL/uL (4.20-6.10); RED CELL DISTRIBUTION WIDTH 14.1 % (11.6-13.7); WHITE BLOOD COUNT (AUTO) 21.4 K/uL (4.8-10.8)
--- NOTE | 2020-09-17 12:35 | NUR ---
CALL TO DIALYSIS NURSE ORDER FOR TODAY ETA OF 2-3 HOURS MADE AWARE PATIENT HAS NEW ACCESS CALL TO [phone]
--- NOTE | 2020-09-17 19:30 | NUR ---
RECEIVED TRANSFER OF CARE AND REPORT FROM [facility] NURSE. PATIENT INTUBATED AND ON VENT, RASS -3, OPEN CLEAR, PATENT AND MAINTAINABLE, HOB AT 30 DEGREES. VENT SETTINGS AT AC/PC, FIO2 50%, PEEP 7, RR 26. PATIENT HAS OG TUBE, PATENT AND SECURED. TUBE FEEDING SET AT 50 ML/HR. SKIN NOT INTACT ON BUTTOCKS, SLIGHT PURPLE DISCOLORATION, BILATERAL LEGS HAVE SLIGHT BRUISING/DISCOLORATION, BILATERAL FEET SOME MINOR DISCOLORATION. BERGMAN CATH IN PLACE, PATENT AND SECURED. DRIPS RUNNING INCLUDE FENTANYL AT 0.5 MCG/KG/HR AND PROPOFOL AT 5 MCG/KG/MIN. IV ACCESS SITES INCLUDE RIGHT UPPER ARM DOUBLE LUMEN PICC, LEFT PERIPHERAL IV. PATIENT IN POSITION OF COMFORT, OFFLOADED FROM PRESSURE POINTS WITH USE OF PILLOWS AND POSITIONING. BED LOCKED AND LOWERED IN A POSITION OF SAFETY.
--- NOTE | 2020-09-17 21:00 | NUR ---
CLONIDINE AND LABETALOL HELD, NOT GIVEN.
[2020-09-17] MEDS: FAMOTIDINE 20 MG/2 ML VIAL IV SCH (21:15)
[2020-09-17] MEDS: ACETAMINOPHEN 325 MG TAB PO PRN (21:27)
[2020-09-17] MEDS ORDERED: CRUSHER, PILL MC ONE (21:31)
[2020-09-18] VITALS (29 sets, daily range): BP systolic 91–152; BP diastolic 35–85
--- NOTE | 2020-09-18 | NUR ---
ORAL CARE, SUCTION AND FREQUENT ROUNDING AND MONITORING PROVIDED.
--- NOTE | 2020-09-18 00:30 | NUR ---
PT TURNED AND REPOSITIONED. OFFLOADED PRESSURE AREAS, ASSESSED SACRUM, SMALL DTI TO LEFT BUTTOCK, OPTIFOAM DRESSING IN PLACE. PT FLACC 0, RASS -3, WITHDRAWS TO PAIN. REPLACED ELECTRODES. HOB 30 DEGREES, SIDE RAILS UP, BED LOCKED AND IN LOWEST POSITION. WILL CONTINUE TO MONITOR.
[2020-09-18] MEDS: PROPOFOL 1000 MG/100 ML PREMIX 100 ML IV PRN (02:46)
[2020-09-18] MEDS: HYDRAGUARD CREAM TP SCH ×2 (05:03→13:00)
[2020-09-18] MEDS: PIPERACILLIN/TAZOBACTAM 2.25 GM in DEXTROSE 5% 50 ML IV SCH ×3 (05:07→21:23)
[2020-09-18 06:35] LABS: HEMATOCRIT 29.3 % (36-52); HEMOGLOBIN 9.3 g/dL (12.0-18.0); MEAN CORPUSCULAR HEMOGLOBIN 28 pg (27-31); MEAN CORPUSCULAR HGB CONC 32 g/dL (33-37); MEAN CORPUSCULAR VOLUME 88.4 fL (80-94); PLATELET COUNT (AUTO) 389 K/uL (140-450); RED BLOOD CELL COUNT(AUTO) 3.31 MIL/uL (4.20-6.10); RED CELL DISTRIBUTION WIDTH 14.3 % (11.6-13.7)
--- NOTE | 2020-09-18 07:28 | NUR ---
TRANSFER OF CARE AND REPORT GIVEN TO ONCOMING DAYSHIFT NURSE.
[2020-09-18] MEDS: BLOOD GLUCOSE MONITORING 1 DEV DEV FS SCH ×4 (07:30→21:44)
[2020-09-18 07:36] LABS: WHITE BLOOD COUNT (AUTO) 27.2 K/uL (4.8-10.8)
[2020-09-18 07:37] LABS: EOSINOPHILS % (MANUAL) 1 % (0-4); LYMPHOCYTES % (MANUAL) 2 % (20-46); MONOCYTES % (MANUAL) 3 % (5-12)
[2020-09-18 07:53] LABS: ANION GAP 17.6 (8-16); CARBON DIOXIDE 24.4 mmol/L (21-32)
[2020-09-18 07:55] LABS: CREATININE 5.9 mg/dL (0.6-1.3)
[2020-09-18] MEDS: APIXABAN 2.5 MG TAB PO SCH ×2 (09:00→21:16)
[2020-09-18] MEDS: DOCUSATE 100 MG/10 ML UDC GT SCH (09:00)
[2020-09-18] MEDS: LABETALOL 200 MG TAB NG SCH ×2 (09:00→21:00)
[2020-09-18] MEDS: INSULIN LANTUS 100 UNITS/ML 10 ML VIAL SUBQ SCH (10:23)
--- NOTE | 2020-09-18 12:02 | NUR ---
CHANGED VENT SETTINGS CHANGED SET RR FROM 26 TO 20. WILL CONTINUE TO MONITOR.
[2020-09-18] MEDS: FOAM DRESSING TP SCH (13:00)
--- NOTE | 2020-09-18 17:38 | NUR ---
PT REMAINS ON DOCUMENTED VENT SETTINGS. PT NOT IN ANY DISTRESS AT THIS TIME. ETT IS SECURE WITH A PATENT AIRWAY. VENT ALARMS ON AND FUNCTIONING.
--- NOTE | 2020-09-18 19:30 | NUR ---
RECIEVED REPORT AND TRANSFER OF CARE FROM [facility] NURSE. PATIENT HOB AT 30 DEGREES, IN A POSITION OF COMFORT. PATIENT ETT TO VENT. VENT SETTINGS ARE AC/PC, FIO2 45%, PEEP 5, RR 20. OG TUBE PATENT, OPEN AND SECURED. IV ACCESS SITES INCLUDE RIGHT UPPER ARM PICC LINE DOUBLE LUMEN PICC, LEFT ARM 20G SALINE LOCK AND RIGHT IJ DAVID CATH. DRIPS RUNNING INCLUDE FENTANYL AT 0.5 MCG/KG/HR AND PROPOFOL AT 5 MCG/KG/MIN. CONTINUOUS TELE MONITOR, SINUS RHYTHM. PATIENT TOLERATING SEDATION AND ETT TUBE WELL. BERGMAN IN PLACE, PATENT AND SECURED. BED IN LOCKED AND LOWERED, IN A POSITION OF SAFETY. FREQUENT ROUNDING AND MONITORING.
--- NOTE | 2020-09-18 20:00 | NUR ---
TELEPHONED HD NURSE, BANG, TO CONFIRM DIALYSIS SCHEDULED FOR Saturday ON 09/19/2020.
[2020-09-18] MEDS: FAMOTIDINE 20 MG/2 ML VIAL IV SCH (21:14)
[2020-09-18] MEDS: CLONIDINE HYDROCHLORIDE 0.1 MG TAB NG SCH (21:15)
[2020-09-18] MEDS: INSULIN LISPRO SLIDING SCALE 100 UNITS/ML VIAL SUBQ PRN (21:47)
[2020-09-18] MEDS: ACETAMINOPHEN 325 MG TAB PO PRN (21:48)
--- NOTE | 2020-09-18 23:00 | NUR ---
FREQUENT ROUNDING AND MONITORING, CONTINUOS TELE MONITOR, COOLING MEASURES IN PLACE.
[2020-09-19] VITALS (28 sets, daily range): BP systolic 95–155; BP diastolic 53–83
--- NOTE | 2020-09-19 01:00 | NUR ---
ET TUBE SUCTIONED, VAP ORAL CARE PERFORMED ROUTINELY, AND FREQUENT TURNING.
[2020-09-19] MEDS: fentaNYL citrate - 50mL vial 2.5 MG in NACL 0.9% 200 ML IV PRN (03:15)
[2020-09-19] MEDS: PIPERACILLIN/TAZOBACTAM 2.25 GM in DEXTROSE 5% 50 ML IV SCH (05:03)
[2020-09-19 06:24] LABS: BASOPHILS # (AUTO) 0.1 K/uL (0.00-0.22); BASOPHILS % (AUTO) 0.4 % (0.0-2.0); EOSINOPHILS # (AUTO) 0.2 K/uL (0-0.4); EOSINOPHILS % (AUTO) 0.6 % (0.0-4.0); HEMATOCRIT 27.6 % (36-52); HEMOGLOBIN 8.7 g/dL (12.0-18.0); LYMPHOCYTES # (AUTO) 0.7 K/uL (2.0-11.5); LYMPHOCYTES % (AUTO) 2.5 % (20.5-51.1); MEAN CORPUSCULAR HEMOGLOBIN 28 pg (27-31); MEAN CORPUSCULAR HGB CONC 32 g/dL (33-37); MEAN CORPUSCULAR VOLUME 89.3 fL (80-94); MONOCYTES # (AUTO) 1.6 K/uL (0.8-1.0); NEUTROPHILS # (AUTO) 23.8 K/uL (1.8-7.7); NEUTROPHILS % (AUTO) 90.5 % (42.2-75.2); PLATELET COUNT (AUTO) 387 K/uL (140-450); RED BLOOD CELL COUNT(AUTO) 3.09 MIL/uL (4.20-6.10); RED CELL DISTRIBUTION WIDTH 14.2 % (11.6-13.7)
[2020-09-19] MEDS: HYDRAGUARD CREAM TP SCH ×2 (06:52→13:00)
[2020-09-19 07:00] LABS: WHITE BLOOD COUNT (AUTO) 26.3 K/uL (4.8-10.8)
[2020-09-19 07:01] LABS: ALBUMIN 1.3 g/dL (3.4-5.0); CARBON DIOXIDE 26.5 mmol/L (21-32); PHOSPHORUS 8.4 mg/dL (2.5-4.9); POTASSIUM 5.5 mmol/L (3.5-5.1); TOTAL BILIRUBIN 0.3 mg/dL (0.0-1.0)
[2020-09-19 07:16] LABS: CREATININE 6.3 mg/dL (0.6-1.3)
[2020-09-19] MEDS: BLOOD GLUCOSE MONITORING 1 DEV DEV FS SCH ×4 (07:30→22:00)
--- NOTE | 2020-09-19 07:30 | NUR ---
TRANSFERRED CARE AND GAVE REPORT TO DAYSHIFT NURSE.
[2020-09-19] MEDS: CLONIDINE HYDROCHLORIDE 0.1 MG TAB NG SCH ×2 (09:00→21:00)
[2020-09-19] MEDS: DOCUSATE 100 MG/10 ML UDC GT SCH (09:00)
[2020-09-19] MEDS: LABETALOL 200 MG TAB NG SCH ×2 (09:00→21:00)
[2020-09-19] MEDS: INSULIN LANTUS 100 UNITS/ML 10 ML VIAL SUBQ SCH (09:00)
[2020-09-19] MEDS: FOAM DRESSING TP SCH (13:00)
--- NOTE | 2020-09-19 16:00 | NUR ---
09/19/20 RD FOLLOW UP COMPLETED PLEASE REFER TO NUTRITION ASSESSMENT UNDER CARE ACTIVITY FOR ESTIMATED NUTRITIONAL NEEDS. 1. CURRENT TF IS NEPRO @ 40 ML/HR X 24 HRS, FLUSH OF 100 ML Q6H -THIS WILL PROVIDE 1728 KCALS AND 78 GM PRO/DAY TO MEET 94 % ESTIMATED ENERGY AND 71% ESTIMATED PROTEIN NEEDS PER DAY 2. RECOMMEND INCREASING RATE TO 50 ML/HR -THIS WILL PROVIDE 2160 KCAL AND 97 GM OF PROTEIN MEETING 100% OF KCAL AND 88% OF PROTEIN NEEDS 3. RD TO FOLLOW-UP IN 2-3 DAYS , HIGH RISK. JIMBO LYONS RD
--- NOTE | 2020-09-19 19:20 | NUR ---
RECEIVED PATIENT ON BED, ORALLY INTUBATED AND VENTILATED AT 45% FIO2; SEDATED WITH FENTANYL DRIP VIA PICC LINE ON RIGHT UPPER ARM; INTACT CARDIACSCOPE SHOWS ON SINUS RHYTHM HR 79/MIN NO ARRHYTHMIAS SEEN. ABDOMEN IS SOFR; HYPOACTIVE BOWEL SOUNDS. ON CONTINOUS TUBE FEEDING NEPRO 40 ML/HR VIA OGT; TOLERATED, NO RESIDUALS NOTED. WITH BERGMAN CATH IN PLACE DRAINING TO CLOUDY WITH LOTS OF SEDIMENTS URINE OUTPUT.
[2020-09-19] MEDS ORDERED: FLUCONAZOLE 200 MG/NS PREMIX 100 ML IV SCH (21:00)
--- NOTE | 2020-09-19 22:06 | NUR ---
2156 SPUTUM SAMPLE COLLECTED AND SENT TO LAB
[2020-09-19] MEDS: FAMOTIDINE 20 MG/2 ML VIAL IV SCH (22:25)
[2020-09-20] VITALS (27 sets, daily range): BP systolic 89–154; BP diastolic 52–82
--- NOTE | 2020-09-20 04:00 | NUR ---
MORNING BED BATH DONE; WOUND CARE DONE.
[2020-09-20] MEDS: HYDRAGUARD CREAM TP SCH ×2 (04:30→13:00)
[2020-09-20 06:24] LABS: BASOPHILS # (AUTO) 0.2 K/uL (0.00-0.22); BASOPHILS % (AUTO) 0.7 % (0.0-2.0); EOSINOPHILS # (AUTO) 0.1 K/uL (0-0.4); EOSINOPHILS % (AUTO) 0.4 % (0.0-4.0); HEMATOCRIT 27.6 % (36-52); HEMOGLOBIN 8.7 g/dL (12.0-18.0); LYMPHOCYTES # (AUTO) 0.7 K/uL (2.0-11.5); LYMPHOCYTES % (AUTO) 2.9 % (20.5-51.1); MEAN CORPUSCULAR HEMOGLOBIN 28 pg (27-31); MEAN CORPUSCULAR HGB CONC 31 g/dL (33-37); MEAN CORPUSCULAR VOLUME 89.7 fL (80-94); MONOCYTES # (AUTO) 1.7 K/uL (0.8-1.0); MONOCYTES % (AUTO) 6.6 % (1.7-9.3); NEUTROPHILS # (AUTO) 22.7 K/uL (1.8-7.7); NEUTROPHILS % (AUTO) 89.4 % (42.2-75.2); PLATELET COUNT (AUTO) 407 K/uL (140-450); RED BLOOD CELL COUNT(AUTO) 3.07 MIL/uL (4.20-6.10); RED CELL DISTRIBUTION WIDTH 14.4 % (11.6-13.7)
[2020-09-20] MEDS: BLOOD GLUCOSE MONITORING 1 DEV DEV FS SCH ×4 (07:30→21:00)
[2020-09-20 08:58] LABS: WHITE BLOOD COUNT (AUTO) 25.5 K/uL (4.8-10.8)
[2020-09-20] MEDS: DOCUSATE 100 MG/10 ML UDC GT SCH (09:00)
[2020-09-20] MEDS: INSULIN LANTUS 100 UNITS/ML 10 ML VIAL SUBQ SCH (09:00)
[2020-09-20] MEDS: CLONIDINE HYDROCHLORIDE 0.1 MG TAB NG SCH ×2 (09:00→21:00)
[2020-09-20] MEDS: LABETALOL 200 MG TAB NG SCH ×2 (09:00→21:00)
[2020-09-20 09:01] LABS: ANION GAP 16.1 (8-16); POTASSIUM 5.1 mmol/L (3.5-5.1)
--- NOTE | 2020-09-20 09:05 | NUR ---
MOISES OF LAB REPORTED CRITICAL LAB VALUES WBC 25.5. RELAYED TO DR. ESPINOSA.
[2020-09-20 11:45] LABS: CREATININE 4.5 mg/dL (0.6-1.3)
[2020-09-20] MEDS ORDERED: VANCOMYCIN PER PHARMACY MC PRN (12:30)
--- NOTE | 2020-09-20 12:38 | NUR ---
1140: RECEIVED A CALL FROM [employer], INFORMING ME OF CRITICAL LAB BUN/CREA 117/4.5. DR. DENSON MADE AWARE.
[2020-09-20] MEDS ORDERED: VANCOMYCIN 1,000 MG in DEXTROSE 5% 250 ML IV SCH (13:00)
[2020-09-20] MEDS: MEROPENEM 500 MG in NACL 0.9% 50 ML IV SCH ×2 (15:00→22:13)
[2020-09-20] MEDS: ACETAMINOPHEN 325 MG TAB PO PRN (18:53)
--- NOTE | 2020-09-20 19:25 | NUR ---
RECEIVED PATIENT ON BED WITH HOB ELEVATED TO 30 DEGREE; SEDATED WITH CONTINOUS FENTANYL DRIP AT 05.MCG/KG/HR VIA PICC LINE TO RIGHT UPPER ARM, PATENT AND INTACT. ORALLY INTUBATED AND VENTILATED AT 40% FIO2 ACPC MODE. CARDIACSCOPE SHOWS ON SINUS RHYTHM HR 84.MIN NO ARRHYTHMIAS SEEN. ABDOMEN IS SODT; HYPOACTIVE BOWEL SOUNDS. ON CONTINOUS TUBE FEEDING NEPRO AT 40 ML/HR VIA OGT; TOLERATED. WITH BERGMAN CATH IN PLACE DRAINING TO CLOUDY WITH SEDIMENTS URINE OUTPUT.
--- NOTE | 2020-09-20 19:40 | NUR ---
RECEIVED PATIENT FROM AM SHIFT. PATIENT WAS SEEN AND ASSESSED. FOUND PATIENT IN SUPINE POSITIONED. PATIENT IS INTUBATED WITH ETT SIZE 8.0 AND SECURED WITH ANCHOR-FAST @ 24cm. PATIENT IS ON VENT SETTINGS: AC/PC 20 RR 16, PEEP 5, FiO2 40% WITH SPO2 OF 96%. AMBU BAG AT BEDSIDE. VENT IS PLUGGED IN RED OUTLET. ALARMS SET AND AUDIBLE TO ENVIRONMENT. SUCTIONED SMALL AMOUNT OF PINK TINGE SECRETIONS FROM ETT. AIRWAY IS PATENT. AUSCULTATION REVEALS BILATERAL COARSE BREATH SOUNDS ON BOTH LUNGS. PATIENT IS IN NO APPARENT RESPIRATORY DISTRESS AT THIS TIME. WILL CONTINUE TO MONITOR PATIENT.
[2020-09-20] MEDS: FAMOTIDINE 20 MG/2 ML VIAL IV SCH (21:00)
[2020-09-20] MEDS: INSULIN LISPRO SLIDING SCALE 100 UNITS/ML VIAL SUBQ PRN (23:14)
[2020-09-21] VITALS (15 sets, daily range): BP systolic 99–250; BP diastolic 53–85
[2020-09-21] MEDS: INSULIN LISPRO SLIDING SCALE 100 UNITS/ML VIAL SUBQ PRN (00:30)
[2020-09-21 03:28] LABS: APPEARANCE,URINE CLEAR (CLEAR); BILIRUBIN,URINE NEGATIVE (NEGATIVE); BLOOD, URINE 3+ (NEGATIVE); COLOR,URINE YELLOW (YELLOW); LEUKOCYTE ESTERASE ,URINE NEGATIVE (NEGATIVE); NITRITE, URINE NEGATIVE (NEGATIVE); PH,URINE 5.5 (5.0-9.0); UGLUCOSE NEGATIVE (NEGATIVE)
[2020-09-21 03:52] LABS: RBC,URINE 11-20 (MOD) /HPF (0-5); WBC,URINE 0 /HPF (0-5)
[2020-09-21 03:53] LABS: URINE AMORPHOUS URATE 1+ /HPF (None Seen)
[2020-09-21] MEDS: HYDRAGUARD CREAM TP SCH ×2 (04:00→04:30)
--- NOTE | 2020-09-21 04:00 | NUR ---
MORNING BED SPONGE DONE.
[2020-09-21] MEDS: DEXAMETHASONE 4 MG/ML VIAL IVP SCH (09:00)
[2020-09-21] MEDS: MEROPENEM 500 MG in NACL 0.9% 50 ML IV SCH ×2 (09:00→21:00)
[2020-09-21] MEDS: INSULIN LANTUS 100 UNITS/ML 10 ML VIAL SUBQ SCH (09:00)
[2020-09-21] MEDS ORDERED: hydrALAZINE 20 MG/ML VIAL IVP PRN (10:45)
[2020-09-21] MEDS ORDERED: LABETALOL 100 MG/20 ML VIAL IVP PRN (10:45)
[2020-09-21 12:20] LABS: HEMOGLOBIN 8.5 g/dL (12.0-18.0); MEAN CORPUSCULAR HEMOGLOBIN 28 pg (27-31); MEAN CORPUSCULAR HGB CONC 32 g/dL (33-37); MEAN CORPUSCULAR VOLUME 89.7 fL (80-94); PLATELET COUNT (AUTO) 351 K/uL (140-450); RED BLOOD CELL COUNT(AUTO) 3.01 MIL/uL (4.20-6.10); RED CELL DISTRIBUTION WIDTH 14.2 % (11.6-13.7)
[2020-09-21 12:41] LABS: ALBUMIN 1.5 g/dL (3.4-5.0); ANION GAP 12.5 (8-16); MAGNESIUM 2.4 mg/dL (1.8-2.4); POTASSIUM 5.5 mmol/L (3.5-5.1); TOTAL BILIRUBIN 0.3 mg/dL (0.0-1.0)
[2020-09-21 12:45] LABS: WHITE BLOOD COUNT (AUTO) 31.3 K/uL (4.8-10.8)
[2020-09-21 12:49] LABS: CREATININE 4.7 mg/dL (0.6-1.3)
--- NOTE | 2020-09-21 12:50 | NUR ---
RECEIVED CRITICAL LAB FOR CR 4.7 BUN 128, PAGED ISAURA MCKNIGHT AND AWAITING FOR MD TO CALL BACK.
--- NOTE | 2020-09-21 12:52 | NUR ---
WBC 31.3, PAGED DR WOLFF AND AWAITING FOR MD TO CALL BACK.
[2020-09-21] MEDS: FOAM DRESSING TP SCH (13:00)
--- NOTE | 2020-09-21 13:05 | NUR ---
RECEIVED TROPONIN CRITICAL LAB, PAGED DR ESPINOSA, AWAITING DR ESPINOSA TO CALL BACK.
[2020-09-21 13:11] LABS: BASOPHILS % (MANUAL) 1 % (0-2); LYMPHOCYTES % (MANUAL) 3 % (20-46); MONOCYTES % (MANUAL) 5 % (5-12)
[2020-09-21] MEDS: APIXABAN 2.5 MG TAB PO SCH ×2 (13:20→21:00)
--- NOTE | 2020-09-21 15:09 | NUR ---
WOUND CARE RE-EVALUATION NOTE: NO CHANGE OF SKIN CONDITION TO SACRALCOCCYX( BLANCHABLE REDNESS, SKIN INTACT), RIGHT BUTTOCK(DTI 2X3 CM, SKIN INTACT) AND COVID TOES. COVID RELATED SKIN FAILURE.
--- NOTE | 2020-09-21 19:30 | NUR ---
RECEIVED PATIENT ON BED;ORALLY INTUBATED AND VENTILATED AT 50% FIO2; SEDATED WITH FENTANYL DRIP VIA PICC LINE TO RIGHT UPPER ARM; PATENT AND INTACT. CARDIACSCOPE SHOWS ON SINUS RHYTHM HR 84/MIN NO ARRHYTHMIAS SEEN. ABDOMEN SOFT, HYPOACTIVE BOWEL SOUNDS. ON CONTINOUS TUBE FEEDING NEPRO 40 ML/HR VIA OGT. WITH BERGMAN CATH IN PLACE DRAINING TO CLOUDY WITH SEDIMENTS URINE OUTPUT.
[2020-09-21] MEDS: FAMOTIDINE 20 MG/2 ML VIAL IV SCH (21:00)
[2020-09-21] MEDS: BLOOD GLUCOSE MONITORING 1 DEV DEV FS SCH (21:00)
[2020-09-22] VITALS (21 sets, daily range): BP systolic 96–122; BP diastolic 56–87
[2020-09-22] MEDS: fentaNYL citrate 1 MG in NACL 0.9% 80 ML IV PRN (03:42)
--- NOTE | 2020-09-22 04:00 | NUR ---
MORNING BED BATH DONE; WOUND CARE DONE; PICC LINE DRESSING CHANGED.
[2020-09-22 07:22] LABS: ANION GAP 14.6 (8-16); CARBON DIOXIDE 29.3 mmol/L (21-32); POTASSIUM 4.9 mmol/L (3.5-5.1)
[2020-09-22 07:28] LABS: BASOPHILS # (AUTO) 0.2 K/uL (0.00-0.22); BASOPHILS % (AUTO) 0.7 % (0.0-2.0); EOSINOPHILS # (AUTO) 0.2 K/uL (0-0.4); EOSINOPHILS % (AUTO) 0.6 % (0.0-4.0); HEMATOCRIT 24.1 % (36-52); HEMOGLOBIN 7.5 g/dL (12.0-18.0); LYMPHOCYTES # (AUTO) 1.3 K/uL (2.0-11.5); LYMPHOCYTES % (AUTO) 4.3 % (20.5-51.1); MEAN CORPUSCULAR HEMOGLOBIN 28 pg (27-31); MEAN CORPUSCULAR HGB CONC 31 g/dL (33-37); MEAN CORPUSCULAR VOLUME 89.7 fL (80-94); MONOCYTES # (AUTO) 1.6 K/uL (0.8-1.0); MONOCYTES % (AUTO) 5.7 % (1.7-9.3); NEUTROPHILS # (AUTO) 25.6 K/uL (1.8-7.7); NEUTROPHILS % (AUTO) 88.7 % (42.2-75.2); PLATELET COUNT (AUTO) 280 K/uL (140-450); RED BLOOD CELL COUNT(AUTO) 2.69 MIL/uL (4.20-6.10); RED CELL DISTRIBUTION WIDTH 14.1 % (11.6-13.7)
[2020-09-22] MEDS: BLOOD GLUCOSE MONITORING 1 DEV DEV FS SCH ×4 (07:30→21:00)
[2020-09-22 08:15] LABS: CREATININE 4.5 mg/dL (0.6-1.3)
[2020-09-22 08:53] LABS: MAGNESIUM 2.4 mg/dL (1.8-2.4); PHOSPHORUS 5.8 mg/dL (2.5-4.9)
[2020-09-22 08:55] LABS: WHITE BLOOD COUNT (AUTO) 28.8 K/uL (4.8-10.8)
[2020-09-22] MEDS: DOCUSATE 100 MG/10 ML UDC GT SCH (09:00)
[2020-09-22] MEDS ORDERED: VANCOMYCIN 1,000 MG in DEXTROSE 5% 250 ML IV SCH (09:00)
[2020-09-22] MEDS: DEXAMETHASONE 4 MG/ML VIAL IVP SCH (09:00)
[2020-09-22] MEDS: INSULIN LANTUS 100 UNITS/ML 10 ML VIAL SUBQ SCH (09:00)
[2020-09-22] MEDS: FOAM DRESSING TP SCH (13:00)
[2020-09-22] MEDS: HYDRAGUARD CREAM TP SCH (13:00)
[2020-09-22] MEDS ORDERED: hePARIN / DEXT 5% PREMIX 250 ML IV SCH (13:30)
[2020-09-22] MEDS ORDERED: HEPARIN PER PHARMACY MC PRN (13:30)
--- NOTE | 2020-09-22 13:59 | NUR ---
PAGED DR ESPINOSA REGARDS ON HEPARIN DRIP, ALSO DR TILLMAN IS GOING TO DO TRACH AND PEG, AWAITING FOR DR ESPINOSA TO CALL BACK.
--- NOTE | 2020-09-22 14:02 | NUR ---
RECEIVED CALL FROM DR ESPINOSA AND INFORMED THAT DR TILLMAN PLANS TO DO TRACH AND PEG TOMORROW, DR ESPINOSA WAS AWARE AND ORDER TO HEPARIN DRIP. Addendum: 09/22/20 at 1409 by Claire Donis RN SAVED WITHOUT COMPLETE: DR ESPINOSA ORDERED TO HOLD HEPARIN DRIP.
--- NOTE | 2020-09-22 14:20 | NUR ---
SPOKE WITH PATIENT'S DAUGHTER LOY BUENO, AND LOY WAS AWARE AND AGREED TO PROCEDURES, TRACH AND PEG WITH DR TILLMAN, OBTAINED CONSENT WITH PRIMARY ASSIGNED RN JIMBO.
[2020-09-22 14:47] LABS: PROTHROMBIN TIME 11.5 secs (10.8-13.4)
--- NOTE | 2020-09-22 15:14 | NUR ---
09/22/20 RD FOLLOW UP COMPLETED PLEASE REFER TO NUTRITION ASSESSMENT UNDER CARE ACTIVITY FOR ESTIMATED NUTRITIONAL NEEDS. 1. RECOMMEND NEPRO @ 40 ML/HR X 24 HRS WITH PROSOURCE BID, FLUSH OF 100 ML Q6H -THIS WILL PROVIDE 1848 KCALS AND 108 GM PRO/DAY TO MEET 100% % ESTIMATED ENERGY AND 99% ESTIMATED PROTEIN NEEDS PER DAY 2. RD TO FOLLOW-UP IN 2-3 DAYS PATIENT IS HIGH RISK. JIMBO LYONS, RD
[2020-09-22] MEDS ORDERED: FUROSEMIDE 20 MG/2 ML VIAL IVP SCH (16:00)
--- NOTE | 2020-09-22 20:00 | NUR ---
PATIENT WAS ACCEPTED AND ASSESS DONE , PATIENT IS SEDATED ON FENTANYLE DRIP, HAS RU PICC LINE AND QUNITE CATH RIGHT IJ WAS DIALYSIS ON 09/21/20 NO FLUID WERE REMOVE SCHEDULE FOR TRACH AND PEG IN THE AM CONSENT HAS BEEN SIGN, PATIENT IS TO BE NPO AFTER MN , HAD AN TEMP OF 100.6 NO COOLING AT THIS TIME. PATIENT IS LAYING ON BED WITH ANY BLANKET AND IS ON MEDICATION , STABLE
[2020-09-22] MEDS: FAMOTIDINE 20 MG/2 ML VIAL IV SCH (21:00)
[2020-09-22] MEDS: MEROPENEM 500 MG in NACL 0.9% 50 ML IV SCH (21:00)
[2020-09-22] MEDS: INSULIN LISPRO SLIDING SCALE 100 UNITS/ML VIAL SUBQ PRN (22:44)
[2020-09-23] VITALS (23 sets, daily range): BP systolic 87–135; BP diastolic 52–72
--- NOTE | 2020-09-23 | NUR ---
PATIENT TEMP IS DOWN TO 99.0 AND STABLE VERY SEDATED ALL ARM AND LEG FLACCID NOTICE BILATERAL FEET TOES BLACK/BLUE ,NO FEELING TO TOES STABLE
[2020-09-23] MEDS: HYDRAGUARD CREAM TP SCH ×2 (01:00→13:00)
[2020-09-23] MEDS: fentaNYL citrate 1 MG in NACL 0.9% 80 ML IV PRN (03:17)
--- NOTE | 2020-09-23 06:30 | NUR ---
AM CARE WAS GIVEN NO BM WAS NOTICE NPO SINCE MN COLOR FAIR SKIN WARM AND DRY TRIED TO OPEN EYES TO WEAK TEMP 99.0 AND STABLE WILL CONTINUED WITH PLN OF CARE, STABLE
[2020-09-23 06:36] LABS: HEMOGLOBIN 7.1 g/dL (12.0-18.0); MEAN CORPUSCULAR HEMOGLOBIN 28 pg (27-31); MEAN CORPUSCULAR HGB CONC 31 g/dL (33-37); MEAN CORPUSCULAR VOLUME 90.4 fL (80-94); PLATELET COUNT (AUTO) 275 K/uL (140-450); RED BLOOD CELL COUNT(AUTO) 2.54 MIL/uL (4.20-6.10); RED CELL DISTRIBUTION WIDTH 14.1 % (11.6-13.7)
[2020-09-23 06:42] LABS: MAGNESIUM 2.9 mg/dL (1.8-2.4); PHOSPHORUS 6.8 mg/dL (2.5-4.9)
[2020-09-23 07:04] LABS: WHITE BLOOD COUNT (AUTO) 31.3 K/uL (4.8-10.8)
[2020-09-23 07:32] LABS: LYMPHOCYTES % (MANUAL) 4 % (20-46); MONOCYTES % (MANUAL) 2 % (5-12)
[2020-09-23] MEDS: INSULIN LISPRO SLIDING SCALE 100 UNITS/ML VIAL SUBQ PRN (08:18)
[2020-09-23] MEDS: BLOOD GLUCOSE MONITORING 1 DEV DEV FS SCH ×3 (08:25→16:30)
[2020-09-23] MEDS: INSULIN LANTUS 100 UNITS/ML 10 ML VIAL SUBQ SCH (09:00)
[2020-09-23] MEDS: MEROPENEM 500 MG in NACL 0.9% 50 ML IV SCH ×2 (11:02→21:45)
[2020-09-23] MEDS: DEXAMETHASONE 4 MG/ML VIAL IVP SCH (11:06)
[2020-09-23] MEDS: DOCUSATE 100 MG/10 ML UDC GT SCH (11:08)
[2020-09-23 11:34] LABS: ALBUMIN 1.5 g/dL (3.4-5.0); ANION GAP 13.9 (8-16); CARBON DIOXIDE 29.6 mmol/L (21-32); POTASSIUM 5.5 mmol/L (3.5-5.1); TOTAL BILIRUBIN 0.3 mg/dL (0.0-1.0)
[2020-09-23 11:55] LABS: CREATININE 5.3 mg/dL (0.6-1.3)
[2020-09-23] MEDS: FOAM DRESSING TP SCH (13:00)
[2020-09-23] MEDS: FAMOTIDINE 20 MG/2 ML VIAL IV SCH (21:49)
[2020-09-24] VITALS (26 sets, daily range): BP systolic 97–125; BP diastolic 50–78
[2020-09-24] MEDS: HYDRAGUARD CREAM TP SCH ×2 (01:00→12:36)
[2020-09-24] MEDS: fentaNYL citrate 1 MG in NACL 0.9% 80 ML IV PRN (02:50)
[2020-09-24] MEDS ORDERED: NOREPINEPHRINE 4 MG/4 ML VIAL IV ONE (03:33)
[2020-09-24] MEDS: NOREPINEPHRINE 4 MG in DEXTROSE 5% 250 ML IV PRN (03:40)
[2020-09-24 06:52] LABS: BASOPHILS # (AUTO) 0.1 K/uL (0.00-0.22); BASOPHILS % (AUTO) 0.4 % (0.0-2.0); EOSINOPHILS % (AUTO) 0.1 % (0.0-4.0); HEMOGLOBIN 8.7 g/dL (12.0-18.0); LYMPHOCYTES # (AUTO) 0.8 K/uL (2.0-11.5); LYMPHOCYTES % (AUTO) 2.9 % (20.5-51.1); MEAN CORPUSCULAR HEMOGLOBIN 28 pg (27-31); MEAN CORPUSCULAR HGB CONC 32 g/dL (33-37); MEAN CORPUSCULAR VOLUME 87.8 fL (80-94); MONOCYTES # (AUTO) 1.3 K/uL (0.8-1.0); MONOCYTES % (AUTO) 4.4 % (1.7-9.3); NEUTROPHILS # (AUTO) 26.3 K/uL (1.8-7.7); NEUTROPHILS % (AUTO) 92.2 % (42.2-75.2); PLATELET COUNT (AUTO) 237 K/uL (140-450); RED BLOOD CELL COUNT(AUTO) 3.08 MIL/uL (4.20-6.10)
[2020-09-24 06:57] LABS: CARBON DIOXIDE 30.8 mmol/L (21-32); POTASSIUM 5.8 mmol/L (3.5-5.1)
[2020-09-24] MEDS: BLOOD GLUCOSE MONITORING 1 DEV DEV FS SCH ×3 (07:00→17:30)
[2020-09-24 07:07] LABS: MAGNESIUM 2.6 mg/dL (1.8-2.4)
[2020-09-24] MEDS: INSULIN LISPRO SLIDING SCALE 100 UNITS/ML VIAL SUBQ PRN ×3 (07:11→17:31)
[2020-09-24 07:14] LABS: WHITE BLOOD COUNT (AUTO) 28.6 K/uL (4.8-10.8)
[2020-09-24 07:30] LABS: PHOSPHORUS 11.1 mg/dL (2.5-4.9)
[2020-09-24 07:35] LABS: CREATININE 4.7 mg/dL (0.6-1.3)
[2020-09-24] MEDS: DEXAMETHASONE 4 MG/ML VIAL IVP SCH (09:37)
[2020-09-24] MEDS: DOCUSATE 100 MG/10 ML UDC GT SCH (09:37)
[2020-09-24] MEDS: MEROPENEM 500 MG in NACL 0.9% 50 ML IV SCH ×2 (09:37→21:53)
[2020-09-24] MEDS: INSULIN LANTUS 100 UNITS/ML 10 ML VIAL SUBQ SCH (09:40)
[2020-09-24] MEDS ORDERED: VANCOMYCIN 1,000 MG in DEXTROSE 5% 250 ML IV SCH (11:00)
[2020-09-24] MEDS ORDERED: SODIUM ZIRCONIUM CYCLOSILICATE 10 GM POWD.PACK PO SCH (11:30)
[2020-09-24] MEDS: FOAM DRESSING TP SCH (12:36)
[2020-09-24] MEDS: FAMOTIDINE 20 MG/2 ML VIAL IV SCH (21:52)
[2020-09-25] VITALS (28 sets, daily range): BP systolic 77–141; BP diastolic 49–81
[2020-09-25] MEDS: fentaNYL citrate 1 MG in NACL 0.9% 80 ML IV PRN ×2 (01:03→22:28)
[2020-09-25] MEDS: BLOOD GLUCOSE MONITORING 1 DEV DEV FS SCH ×5 (01:20→23:26)
[2020-09-25] MEDS: HYDRAGUARD CREAM TP SCH ×2 (01:28→13:19)
[2020-09-25] MEDS: INSULIN LISPRO SLIDING SCALE 100 UNITS/ML VIAL SUBQ PRN ×5 (01:31→23:27)
[2020-09-25] MEDS: NOREPINEPHRINE 4 MG in DEXTROSE 5% 250 ML IV PRN (05:11)
[2020-09-25 06:12] LABS: BASOPHILS # (AUTO) 0.1 K/uL (0.00-0.22); BASOPHILS % (AUTO) 0.3 % (0.0-2.0); EOSINOPHILS % (AUTO) 0.1 % (0.0-4.0); HEMATOCRIT 28.8 % (36-52); HEMOGLOBIN 9.3 g/dL (12.0-18.0); LYMPHOCYTES # (AUTO) 0.9 K/uL (2.0-11.5); MEAN CORPUSCULAR HEMOGLOBIN 29 pg (27-31); MEAN CORPUSCULAR HGB CONC 32 g/dL (33-37); MEAN CORPUSCULAR VOLUME 88.1 fL (80-94); MONOCYTES # (AUTO) 1.6 K/uL (0.8-1.0); MONOCYTES % (AUTO) 5.2 % (1.7-9.3); NEUTROPHILS # (AUTO) 27.4 K/uL (1.8-7.7); PLATELET COUNT (AUTO) 245 K/uL (140-450); RED BLOOD CELL COUNT(AUTO) 3.27 MIL/uL (4.20-6.10); RED CELL DISTRIBUTION WIDTH 13.8 % (11.6-13.7)
[2020-09-25 06:31] LABS: LYMPHOCYTES % (AUTO) 3.1 % (20.5-51.1); NEUTROPHILS % (AUTO) 91.3 % (42.2-75.2)
[2020-09-25 06:48] LABS: MAGNESIUM 2.7 mg/dL (1.8-2.4)
[2020-09-25 07:10] LABS: PHOSPHORUS 7.9 mg/dL (2.5-4.9)
--- NOTE | 2020-09-25 07:35 | NUR ---
RECEIVED REPORT FROM CONTENT SPECIALIST. ETT TO VENT, AC PC FI02 100%, RATE 20, PEEP 5. RASS-3, FLACC 0, NO APPARENT DISTRESS. STEFAN PICC IN PLACE, INFUSING FENTANYL 0.5MCG/KG/MIN. OGT IN PLACE CONNECTED TO FEEDING. SKIN WARM AND DRY, NOT INTACT. SACRAL WOUND, DRESSING IN PLACE. RIJ SHAYY IN PLACE. BERGMAN CATHETER IN PLACE, MINIMAL URINE NOTED. DROPLET PRECAUTIONS IN PLACE. WILL CONTINUE TO MONITOR.
[2020-09-25] MEDS: DOCUSATE 100 MG/10 ML UDC GT SCH (09:00)
[2020-09-25] MEDS: INSULIN LANTUS 100 UNITS/ML 10 ML VIAL SUBQ SCH (09:00)
[2020-09-25] MEDS: DEXAMETHASONE 4 MG/ML VIAL IVP SCH (09:00)
--- NOTE | 2020-09-25 09:00 | NUR ---
WITH TEMP OF 100.7, TYLENOL GIVEN ORDERED. COOLING MEASURES RENDERED
[2020-09-25] MEDS: ACETAMINOPHEN 325 MG TAB PO PRN (10:24)
--- NOTE | 2020-09-25 10:26 | NUR ---
09/25/20 RD FOLLOW UP COMPLETED PLEASE REFER TO NUTRITION ASSESSMENT UNDER CARE ACTIVITY FOR ESTIMATED NUTRITIONAL NEEDS. 1. RECOMMEND NEPRO @ 40 ML/HR X 24 HRS WITH PROSOURCE BID, FLUSH OF 100 ML Q6H -THIS WILL PROVIDE 1848 KCALS AND 108 GM PRO/DAY TO MEET 100%% ESTIMATED ENERGY AND 99% ESTIMATED PROTEIN NEEDS PER DAY 2. RD TO FOLLOW-UP IN 2-3 DAYS PATIENT IS HIGH RISK. MATTHEW STATON, DEVON
[2020-09-25] MEDS: METOCLOPRAMIDE 10 MG/2 ML INJ VIAL IVP SCH ×3 (11:26→23:13)
--- NOTE | 2020-09-25 11:50 | NUR ---
STILL WITH TEMP OF 100.0, CONTINUE COOLING MEASURES
[2020-09-25] MEDS: FOAM DRESSING TP SCH (13:19)
[2020-09-25 14:29] LABS: ANION GAP 17.1 (8-16); CARBON DIOXIDE 24.3 mmol/L (21-32); POTASSIUM 5.4 mmol/L (3.5-5.1)
[2020-09-25] MEDS ORDERED: VANCOMYCIN PER PHARMACY MC PRN (14:30)
[2020-09-25 14:32] LABS: CREATININE 5.5 mg/dL (0.6-1.3)
[2020-09-25] MEDS ORDERED: VANCOMYCIN HCL 750 MG in DEXTROSE 5% 250 ML IV SCH (16:00)
--- NOTE | 2020-09-25 16:00 | NUR ---
TEMP 100.4, ACETAMINOPHEN SUPPOSITORY GIVEN. CONTINUE COOLING MEASURES
--- NOTE | 2020-09-25 19:00 | NUR ---
SEEN BY DR WOLFF, NOTIFIED OF PT'S ELEVATED TEMP. WITH NEW ORDERS MADE AND CARRIED OUT
--- NOTE | 2020-09-25 19:45 | NUR ---
RECEIVED ENDORSEMENT FROM DAY SHIFT RN. ETT TO VENT, AC PC FI02 100%, RATE 20, PEEP 5. RASS-3, FLACC 0, NO APPARENT DISTRESS. STEFAN PICC IN PLACE, INFUSING FENTANYL 0.5MCG/KG/MIN. OGT IN PLACE CONNECTED TO FEEDING. SKIN WARM AND DRY, NOT INTACT. SACRAL WOUND, DRESSING IN PLACE. RIJ SHAYY IN PLACE. BERGMAN CATHETER IN PLACE, MINIMAL URINE NOTED. DROPLET PRECAUTIONS IN PLACE. WILL CONTINUE TO MONITOR. Addendum: 09/25/20 at 2252 by Tong Dow RN RECEIVED REPORT FROM LOGISTICS ENGINEERING MANAGER. PT SUPINE IN BED WITH HOB 30 DEGREES. SEDATED RASS-3, FLACC 0, SHOWING NO SIGNS OF ACUTE DISTRESS, PT AFEBRILE, ETT TO VENT, AC PC FI02 50%, RATE 16, PEEP 5. STEFAN PICC IN PLACE, INFUSING FENTANYL AND NS TKO. OGT IN PLACE CONNECTED TO FEEDING. SKIN WARM AND DRY, NOT INTACT. SACRAL WOUND, DRESSING IN PLACE. RIJ SHAYY IN PLACE. BERGMAN CATHETER IN PLACE, MINIMAL URINE NOTED. DROPLET PRECAUTIONS IN PLACE. WILL CONTINUE WITH CURRENT POC
[2020-09-25] MEDS: MEROPENEM 500 MG in NACL 0.9% 50 ML IV SCH (20:26)
[2020-09-25] MEDS: PANTOPRAZOLE 40 MG INJ VIAL IVP SCH (20:26)
--- NOTE | 2020-09-25 20:39 | NUR ---
UPON ENTERING PT RM GURGLING WAS AUDIBLE FOUND ETT SECURED @ 18-19CM TUBE WAS ADVANCED TO PREV DEPTH. PT RECEIVING ADEQUATE VOL (550-750) AND SPO2 98%. PENDING CXR FOR ETT PLACEMENT.
[2020-09-25] MEDS: FLUCONAZOLE 200 MG/NS PREMIX 100 ML IV SCH (20:42)
--- NOTE | 2020-09-25 21:13 | NUR ---
ED PRESENTED W/ CXR
--- NOTE | 2020-09-25 21:15 | NUR ---
ADMINISTERED 2100H MEDICATIONS PER ORDERED
--- NOTE | 2020-09-25 22:01 | NUR ---
ETT RE-ADJUSTED AND SECURED @ 24CM (TEETH ) PENDING CXR INTERP
--- NOTE | 2020-09-25 23:06 | NUR ---
PTS DAUGHTER LOY CALLED IN REGARDS TO FATHERS STATUS AND UPDATE
[2020-09-26] VITALS (31 sets, daily range): BP systolic 84–123; BP diastolic 52–74
[2020-09-26] MEDS: HYDRAGUARD CREAM TP SCH ×2 (00:27→13:39)
[2020-09-26] MEDS: METOCLOPRAMIDE 10 MG/2 ML INJ VIAL IVP SCH ×3 (05:05→18:48)
[2020-09-26] MEDS: BLOOD GLUCOSE MONITORING 1 DEV DEV FS SCH ×3 (05:18→18:48)
[2020-09-26] MEDS: INSULIN LISPRO SLIDING SCALE 100 UNITS/ML VIAL SUBQ PRN ×2 (05:19→18:55)
[2020-09-26 06:15] LABS: BASOPHILS # (AUTO) 0.1 K/uL (0.00-0.22); BASOPHILS % (AUTO) 0.3 % (0.0-2.0); EOSINOPHILS % (AUTO) 0.1 % (0.0-4.0); HEMATOCRIT 27.7 % (36-52); HEMOGLOBIN 8.9 g/dL (12.0-18.0); LYMPHOCYTES # (AUTO) 0.7 K/uL (2.0-11.5); LYMPHOCYTES % (AUTO) 2.3 % (20.5-51.1); MEAN CORPUSCULAR HEMOGLOBIN 28 pg (27-31); MEAN CORPUSCULAR HGB CONC 32 g/dL (33-37); MEAN CORPUSCULAR VOLUME 87.8 fL (80-94); MONOCYTES # (AUTO) 1.5 K/uL (0.8-1.0); MONOCYTES % (AUTO) 5.3 % (1.7-9.3); NEUTROPHILS # (AUTO) 26.4 K/uL (1.8-7.7); PLATELET COUNT (AUTO) 202 K/uL (140-450); RED BLOOD CELL COUNT(AUTO) 3.16 MIL/uL (4.20-6.10); RED CELL DISTRIBUTION WIDTH 13.9 % (11.6-13.7)
[2020-09-26 06:24] LABS: MAGNESIUM 3.1 mg/dL (1.8-2.4)
[2020-09-26 06:29] LABS: PHOSPHORUS 10.4 mg/dL (2.5-4.9)
[2020-09-26 06:48] LABS: ALBUMIN 1.7 g/dL (3.4-5.0); ANION GAP 20.2 (8-16); CARBON DIOXIDE 24.3 mmol/L (21-32); POTASSIUM 5.5 mmol/L (3.5-5.1); TOTAL BILIRUBIN 0.4 mg/dL (0.0-1.0)
[2020-09-26 06:58] LABS: CREATININE 5.9 mg/dL (0.6-1.3)
--- NOTE | 2020-09-26 07:21 | NUR ---
ENDORSED TO DAY SHIFT RN FOR CONTINUITY OF CARE
[2020-09-26 07:26] LABS: WHITE BLOOD COUNT (AUTO) 28.8 K/uL (4.8-10.8)
--- NOTE | 2020-09-26 07:36 | NUR ---
RECEIVED REPORT FROM LINING BRUSHER. ETT TO VENT, AC PC FI02 55%, RATE 20, PEEP 5. RASS-3, FLACC 0, NO APPARENT DISTRESS. STEFAN PICC IN PLACE, INFUSING FENTANYL 0.5MCG/KG/MIN. OGT IN PLACE CONNECTED TO FEEDING. SKIN WARM AND DRY, NOT INTACT. SACRAL WOUND, DRESSING IN PLACE. RIJ SHAYY IN PLACE. BERGMAN CATHETER IN PLACE, CHAGO URINE NOTED. DROPLET PRECAUTIONS IN PLACE. WILL CONTINUE TO MONITOR.
--- NOTE | 2020-09-26 09:00 | NUR ---
DUE MORNING MEDS GIVEN ORDERED. WITH TEMP OF 100.7, TYLENOL GIVEN ORDERED. COOLING MEASURES RENDERED
[2020-09-26] MEDS: MEROPENEM 500 MG in NACL 0.9% 50 ML IV SCH ×2 (09:40→20:27)
[2020-09-26] MEDS: DEXAMETHASONE 4 MG/ML VIAL IVP SCH (09:40)
[2020-09-26] MEDS: INSULIN LANTUS 100 UNITS/ML 10 ML VIAL SUBQ SCH (09:40)
[2020-09-26] MEDS: PANTOPRAZOLE 40 MG INJ VIAL IVP SCH ×2 (09:40→20:26)
[2020-09-26] MEDS: DOCUSATE 100 MG/10 ML UDC GT SCH (09:40)
[2020-09-26] MEDS: ACETAMINOPHEN 325 MG TAB PO PRN ×2 (09:41→20:30)
[2020-09-26] MEDS ORDERED: ALBUMIN HUMAN 25% 50 ML IV ONE (12:05)
--- NOTE | 2020-09-26 12:10 | NUR ---
SBP 80 DURING DIALYSIS, RESTARTED LEVOPHED
[2020-09-26] MEDS: FOAM DRESSING TP SCH (13:39)
--- NOTE | 2020-09-26 14:00 | NUR ---
DIALYSIS DONE. AFIB WITH RVR NOTED. NOTIFIED DR TANG, ORDERED METOPROLOL 2.5MG IVP Q4H PRN FOR HR>130
[2020-09-26] MEDS: fentaNYL citrate 1 MG in NACL 0.9% 80 ML IV PRN (15:00)
[2020-09-26] MEDS ORDERED: METOPROLOL 5 MG/5 ML VIAL IV PRN (16:10)
[2020-09-26] MEDS: FLUCONAZOLE 200 MG/NS PREMIX 100 ML IV SCH (16:15)
--- NOTE | 2020-09-26 19:30 | NUR ---
ASSUMED CARE OF PT.INITIAL ASSESSMENT DONE.PT SEDATED.SR/ST ON MONITOR.ORALLY INTUBATED AC/PC FIO2 70% RATE 16 PC20 PEEP 5.WITH RT IJ SHAYY CATHETER FOR HD.DRY AND INTACT DRESSING.WITH STEFAN PICC LINE INTACT.GOOD BLOOD RETURN TO BOTH PORTS INFUSING NS SALINE LOCK; FENTANYL DRIP AT 0.5MCG/KG/HR AND LEVOPHED 4 MG IN 250ML D5W AT 4 MCG/MIN.WITH OGT ALREADY IN PLACE.PLACEMENT VERIFIED.ON CONTINUOUS TUBE FEEDING NEEPRO AT 40ML/HR WITH WATER FLUSH ORDERED.W/450ML RESIDUALS NOTED.TUBE FEEDING PLACED ON HOLD AT THIS TIME DUE TO HIGH RESIDUAL.W/BERGMAN CATHETER TO BSD DRAINING SMALL AMT OF CLOUDY YELLOW URINE.W/D/I DRESSING TO SACRUM.MULTIPLE TOES ON BOTH FEET DRY AND PURPLE DISCOLORATION NOTED.FLACC 0
--- NOTE | 2020-09-26 20:30 | NUR ---
TEMP 101.1; COOLING MEASURES RENDERED. DR WOLFF, INFECTIOUS DS IN THE UNIT.MADE AWARE.
--- NOTE | 2020-09-26 22:00 | NUR ---
CONTINUOUS COOLING MEASURES RENDERED.REPOSITIONED.FLACC 0
--- NOTE | 2020-09-26 23:15 | NUR ---
PHONE CALL FROM PTS DAUGHTER LOY, UPDATED ON PTS PRESENT CONDITION.
[2020-09-27] VITALS (24 sets, daily range): BP systolic 64–129; BP diastolic 36–77
--- NOTE | 2020-09-27 | NUR ---
TEMP 103.7; CONTINUOUS COOLING MEASURES RENDERED.COOLING BLANKET PLACED.TYLENOL NOT DUE AT THIS TIME.WILL CONTINUE TO MONITOR
[2020-09-27] MEDS: HYDRAGUARD CREAM TP SCH ×2 (00:58→12:47)
--- NOTE | 2020-09-27 02:00 | NUR ---
CONTINUOUS COOLING MEASURES RENDERED.FLACC 0.REPOSITIONED
[2020-09-27] MEDS: BLOOD GLUCOSE MONITORING 1 DEV DEV FS SCH ×3 (05:11→12:20)
[2020-09-27] MEDS: METOCLOPRAMIDE 10 MG/2 ML INJ VIAL IVP SCH ×3 (05:11→11:56)
[2020-09-27] MEDS: INSULIN LISPRO SLIDING SCALE 100 UNITS/ML VIAL SUBQ PRN ×3 (05:12→12:46)
--- NOTE | 2020-09-27 06:00 | NUR ---
LARGE AMT OF SOFT TO LIQUID DARK COLORED STOOL NOTED.MORNING CARE DONE.ORAL CARE DONE.REPOSITIONED.FLACC 0
[2020-09-27 06:42] LABS: BASOPHILS # (AUTO) 0.1 K/uL (0.00-0.22); BASOPHILS % (AUTO) 0.3 % (0.0-2.0); HEMATOCRIT 27.6 % (36-52); HEMOGLOBIN 8.6 g/dL (12.0-18.0); LYMPHOCYTES # (AUTO) 0.7 K/uL (2.0-11.5); LYMPHOCYTES % (AUTO) 2.3 % (20.5-51.1); MEAN CORPUSCULAR HEMOGLOBIN 28 pg (27-31); MEAN CORPUSCULAR HGB CONC 31 g/dL (33-37); MEAN CORPUSCULAR VOLUME 89.4 fL (80-94); MONOCYTES # (AUTO) 1.5 K/uL (0.8-1.0); MONOCYTES % (AUTO) 5.1 % (1.7-9.3); NEUTROPHILS # (AUTO) 27.2 K/uL (1.8-7.7); NEUTROPHILS % (AUTO) 92.3 % (42.2-75.2); PLATELET COUNT (AUTO) 219 K/uL (140-450); RED BLOOD CELL COUNT(AUTO) 3.09 MIL/uL (4.20-6.10); RED CELL DISTRIBUTION WIDTH 14.2 % (11.6-13.7)
--- NOTE | 2020-09-27 07:30 | NUR ---
REPORT RECEIVED FROM CHARLY EDDY. TRANSFER OF CARE AT THIS TIME.
[2020-09-27 08:30] LABS: ALBUMIN 2.1 g/dL (3.4-5.0); CARBON DIOXIDE 23.2 mmol/L (21-32); POTASSIUM 5.2 mmol/L (3.5-5.1); TOTAL BILIRUBIN 0.5 mg/dL (0.0-1.0)
[2020-09-27] MEDS: DOCUSATE 100 MG/10 ML UDC GT SCH (08:54)
[2020-09-27] MEDS: PANTOPRAZOLE 40 MG INJ VIAL IVP SCH (08:55)
[2020-09-27] MEDS: DEXAMETHASONE 4 MG/ML VIAL IVP SCH (08:55)
[2020-09-27] MEDS: MEROPENEM 500 MG in NACL 0.9% 50 ML IV SCH (09:00)
[2020-09-27] MEDS ORDERED: FUROSEMIDE 40 MG/4 ML VIAL IVP SCH (09:00)
[2020-09-27] MEDS ORDERED: NOREPINEPHRINE 16 MG in DEXTROSE 5% 250 ML IV PRN ×2 (09:05→13:35)
[2020-09-27] MEDS: INSULIN LANTUS 100 UNITS/ML 10 ML VIAL SUBQ SCH (09:25)
[2020-09-27 09:46] LABS: WHITE BLOOD COUNT (AUTO) 29.5 K/uL (4.8-10.8)
[2020-09-27 10:47] LABS: CREATININE 6.6 mg/dL (0.6-1.3)
[2020-09-27] MEDS ORDERED: VANCOMYCIN 1,000 MG in DEXTROSE 5% 250 ML IV SCH (12:00)
[2020-09-27] MEDS: FOAM DRESSING TP SCH (12:46)
--- NOTE | 2020-09-27 14:31 | NUR ---
CALLED TO PTS ROOM FOR DESATURATION. INCREASED PEEP TO 10. Addendum: 09/27/20 at 1435 by Cynthia Gatica RT PTS SATURATION REMAINS 85-86%. WILL HOLD OFF ON GOING UP ON PEEP MORE DUE TO LOW BLOOD PRESSURE. RN NOTIFIED.
--- NOTE | 2020-09-27 15:06 | NUR ---
LEVOPHED MAXED AT 30MCG PT CONTINUES TO BE HYPOTENSIVE. 68/39, BRADYCARDIA 48-53 DR. CLYDE REGALADO.
--- NOTE | 2020-09-27 15:17 | NUR ---
SPOKE WITH LOY GIOVANY'S DAUGHTER, GAVE CURRENT UPDATE ON PT STATUS. WILL CONTINUE TO MONITOR, AND NOTIFY DAUGHTER OF ANY CHANGES.
[2020-09-27] MEDS ORDERED: NACL 0.9% 1,000 ML IV SCH (15:30)
[2020-09-27] MEDS ORDERED: EPINEPHrine 1:1000 (1 mg/mL) 1 MG in DEXTROSE 5% 250 ML IV PRN (15:30)
[2020-09-27] MEDS ORDERED: EPINEPHrine 1:1000 - 1 MG/ML AMP ONE (15:32)
--- NOTE | 2020-09-27 15:37 | NUR ---
ATTENDED CODE BLUE, BAGGED PT UNTIL ROSC. PT WENT ASYSTOLE, PROCEEDED TO PERFORM ACLS, NO ROSC. DR TANG CALLED TOD AT 1613.
--- NOTE | 2020-09-27 15:46 | NUR ---
ASYSTOLE ON THE MONITOR, NO PULSE, CPR STARTED, CODE BLUE CALLED
--- NOTE | 2020-09-27 15:51 | NUR ---
PATIENT IS CODING, DR CLYDE REGALADO.
--- NOTE | 2020-09-27 15:55 | NUR ---
RECEIVED A CALL BACK FROM DR TANG, INFORMED DR TANG THAT PATIENT IS CODING AND CURRENT CONDITION, DR TANG WAS AWARE. PROVIDED FAMILY PHONE NUMBER TO DR TANG, PER DR TANG, HE WILL CALL FAMILY TO NOTIFY.
--- NOTE | 2020-09-27 16:05 | NUR ---
DR TANG AT BEDSIDE, CALLED GRAND DAUGHTER LOY, NO ANSWER, VOICE MAIL FULL, WILL TRY AGAIN LATER
--- NOTE | 2020-09-27 16:08 | NUR ---
CODE BLUE, CPR STARTED
--- NOTE | 2020-09-27 16:13 | NUR ---
PT PRONOUNCED AT THIS TIME BY DR Mio TANG. PHONE DANYA MADE TO MOTHER, SEBAS, SPOKE WITH DR TANG.
--- NOTE | 2020-09-27 17:20 | NUR ---
ATTEMPTED TO CALL MOTHER SEBAS AND DAUGHTER LOY, NO ANSWER FOR BOTH, WILL TRY AGAIN LATER.
--- NOTE | 2020-09-27 17:57 | NUR ---
[facility] HEALTH EDUCATION TEACHER CALLED TO NOTIFIY OF , HEALTH EDUCATION TEACHER WILL CALL BACK
--- NOTE | 2020-09-27 18:13 | NUR ---
[employer], NOT CANDIDATE FOR ORGAN DONATION. CASE #[id number]
--- NOTE | 2020-09-27 18:30 | NUR ---
CALLED MOTHER SEBAS TO OFFER DEEP CONDOLENCES AND TO DISCUSS POST MORTEM PROCEDURE, SEBAS OR OTHER FAMILY MEMBER WILL GLASS BLOWER HELPER PERSONAL ITEMS ANOTHER DAY, WILL SEND PERSONAL BELONGINGS TO SECURITY, SEBAS OR PT'S DAUGHTER LOY WILL CALL US BACK WITH MORTUARY INFORMATION.
--- NOTE | 2020-09-27 18:55 | NUR ---
PT'S BROTHER IN LAW FRANK BAUTISTA CALLED ON BEHALF OF PT'S MOTHER/DAUGHTER BECAUSE THEY ARE TOO DISTRAUGHT TO DISCUSS MORTUARY. PROCESS EXPLAINED TO FRANK, PHONE NUMBER TO GUERA SAMUEL PROVIDED, FRANK WILL CALL US BACK WHEN THEY DECIDE ON HOME. ALSO EXPLAINED THAT AFTER RELEASE FROM HEALTH CARE COORDINATOR, PERSONAL BELONGINGS WILL BE TURNED INTO SECURITY FOR THEM TO [place] ANYTIME. Addendum: 09/27/20 at 1931 by Nati Cortes RN PHONE NUMBER FOR FRANK IS [phone]
--- NOTE | 2020-09-27 19:31 | NUR ---
REPORT GIVEN TO GELACIO PARKS.
--- NOTE | 2020-09-27 20:30 | NUR ---
FOLLOW UP CALL TO CHECK WRITER SALESPERSON'S OFFICE; CHECK WRITER SALESPERSON STILL NOT AVAILABLE AT THIS TIME PER OFFICE STAFF' AWAITING CALL FROM CHECK WRITER SALESPERSON
--- NOTE | 2020-09-27 21:29 | NUR ---
PHONE CALL FROM TERMINAL OPERATIONS MANAGER ROBE COTO; QUESTIONS ANSWERED.BODY RELEASED.CASE NUMBER #[id number] COTO PER TERMINAL OPERATIONS MANAGER
--- NOTE | 2020-09-27 22:04 | NUR ---
PHONE CALL TO LOY, PTS DAUGHTER.THE FAMILY HAS NOT DECIDED ON THE MORTUARY AT THIS TIME, INFORMED LOY THAT THE BODY WILL BE IN THE FREEZER, SHE SAID SHE WILL GET THE BELONGINGS IN THE MORNING.BELONGINGS WILL BE WITH SECURITY.
--- NOTE | 2020-09-28 00:30 | NUR ---
BODY PLACED IN THE FREEZER WITH DOCTOR OF MEDICINE CHANELL PARKS AND SECURITY CEDILLO.BELONGINGS ALSO GIVEN TO SECURITY, INFORMED PTS FAMILY (LOY) WILL SCHOOL PSYCHOLOGIST THE BELONGINGS IN THE MORNING
== END 2020-09-27 23:00 | DRG 720 ==
LOC: MED 09:00 → MMU 13:42 → MTU 09-05 08:00 → MIC 09-08 17:10
PROVIDERS: ADMIT Hospitalist; ATTEND Hospitalist
PROC: XW033E5 Introduction of Remdesivir Anti-infective into Peripheral Vein, Percutaneous Approach, New Technology Group 5 (ICD-10-PCS; 2020-09-05)
PROC: 5A1955Z Respiratory Ventilation, Greater than 96 Consecutive Hours (ICD-10-PCS; principal; 2020-09-08)
PROC: 0BH17EZ Insertion of Endotracheal Airway into Trachea, Via Natural or Artificial Opening (ICD-10-PCS; 2020-09-08)
PROC: XW13325 Transfusion of Convalescent Plasma (Nonautologous) into Peripheral Vein, Percutaneous Approach, New Technology Group 5 (ICD-10-PCS; 2020-09-09)
PROC: 02HV33Z Insertion of Infusion Device into Superior Vena Cava, Percutaneous Approach (ICD-10-PCS; 2020-09-12)
PROC: B548ZZA Ultrasonography of Superior Vena Cava, Guidance (ICD-10-PCS; 2020-09-12)
PROC: 5A1D70Z Performance of Urinary Filtration, Intermittent, Less than 6 Hours Per Day (ICD-10-PCS; 2020-09-12)
PROC: 5A1D70Z Performance of Urinary Filtration, Intermittent, Less than 6 Hours Per Day (ICD-10-PCS; 2020-09-13)
PROC: 5A1D70Z Performance of Urinary Filtration, Intermittent, Less than 6 Hours Per Day (ICD-10-PCS; 2020-09-14)
PROC: 5A1D70Z Performance of Urinary Filtration, Intermittent, Less than 6 Hours Per Day (ICD-10-PCS; 2020-09-16)
PROC: 5A1D70Z Performance of Urinary Filtration, Intermittent, Less than 6 Hours Per Day (ICD-10-PCS; 2020-09-17)
PROC: 5A1D70Z Performance of Urinary Filtration, Intermittent, Less than 6 Hours Per Day (ICD-10-PCS; 2020-09-18)
PROC: 5A1D70Z Performance of Urinary Filtration, Intermittent, Less than 6 Hours Per Day (ICD-10-PCS; 2020-09-21)
PROC: 5A1D70Z Performance of Urinary Filtration, Intermittent, Less than 6 Hours Per Day (ICD-10-PCS; 2020-09-22)
PROC: 30233N1 Transfusion of Nonautologous Red Blood Cells into Peripheral Vein, Percutaneous Approach (ICD-10-PCS; 2020-09-23)
PROC: 5A1D70Z Performance of Urinary Filtration, Intermittent, Less than 6 Hours Per Day (ICD-10-PCS; 2020-09-26)
DX: A41.9 Sepsis, unspecified organism (principal); U07.1 COVID-19; J96.01 Acute respiratory failure with hypoxia; I10 Essential (primary) hypertension; R57.0 Cardiogenic shock; G93.40 Encephalopathy, unspecified; J12.82 Pneumonia due to coronavirus disease 2019; E87.1 Hypo-osmolality and hyponatremia; E87.5 Hyperkalemia; D69.6 Thrombocytopenia, unspecified; I46.9 Cardiac arrest, cause unspecified; R65.21 Severe sepsis with septic shock; N17.9 Acute kidney failure, unspecified; Z88.2 Allergy status to sulfonamides; E11.9 Type 2 diabetes mellitus without complications; R74.01 Elevation of levels of liver transaminase levels; D72.819 Decreased white blood cell count, unspecified
CPT/HCPCS: 36415; 36600; 71045; 76770; 80048; 80053; 80202; 81001; 82550; 82728; 82803; 82948; 83605; 83615; 83735; 83880; 84100; 84300; 84484; 85025; 85379; 85384; 85610; 85730; 86140; 86704; 86706; 86708; 86709; 86803; 86886; 86900; 86901; 86920; 87040; 87070; 87081; 87086; 87205; 87340; 87804; 90935; 93005; 94002; 94003; 96365; 96375; 97110; 97116; 97161-GP; 97530; 99291; C1752; C9113; J0171; J0360; J0456; J0610; J0696; J1100; J1450; J1644; J1815; J1940; J2060; J2185; J2405; J2543; J2704; J2765; J3010; J3370; J3490; J7030; J7060; P9016; P9017; P9046; U0003